=== PATIENT | male | born 1940 | race Caucasian/White ===

== ENCOUNTER 2018-09-15 12:47 | Emergency (ER) | payer OTHER ==
--- NOTE | 2018-09-15 13:15 | RAD REPORT ---
EXAM DESCRIPTION: RAD - Chest Single View - 09/15/2018 1:10 pm CLINICAL HISTORY: SOB Chest pain. COMPARISON: Chest Pa And Lat (2 Views) dated 09/02/2018; Chest Pa And Lat (2 Views) dated 10/31/2015; C HEST PA AND LAT 2 VIEW dated 03/30/2008; CHEST PA AND LAT 2 VIEW dated 09/25/2005 FINDINGS: Portable technique limits examination quality. Mild linear opacities in left lung base may represent atelectasis or early infiltrate/ pneumonia. The lungs are otherwise clear. The heart is mildly enlarged in size. No displaced fractures.
[2018-09-15 13:17] LABS: Absolute Lymphocytes (CBC) 1.1 K/uL (0.7-4.9); Basophils % 0.9 % (0-1.3); Eosinophils % 2.5 % (0-4.4); Hematocrit 41.4 % (39.6-49.0); MPV 8.5 fL (7.6-11.3); Monocytes % 10.1 % (3.3-12.3); RBC Red Blood Cell Count 4.58 M/uL (4.33-5.43)
[2018-09-15 13:18] LABS: Protime INR 2.69
[2018-09-15 13:31] LABS: Albumin 3.3 g/dL (3.4-5.0); Bilirubin Direct 0.6 mg/dL (0-0.2); Bilirubin Total 1.3 mg/dL (0.2-1.0); Magnesium 2.2 mg/dL (1.8-2.4); Potassium 4.3 mmol/L (3.5-5.1); Protein, Total 6.9 g/dL (6.4-8.2); Troponin (Emerg Dept Use Only) 0.02 ng/mL (0.0-0.045)
--- NOTE | 2018-09-15 15:12 | ER ---
Nurse's Notes [facility] Name: Refugio Hsu Age: 78 yrs Sex: Male : 1940 Arrival Date: 09/15/2018 Time: 12:52 Bed 6 Private MD: Diagnosis: Shortness of breath Presentation: 09/15 12:42 Presenting complaint: EMS states: SOB x 2 days, worse with exertion. BP 124/68 HR-54-88 sv 96% RA. Transition of care: patient was not received from another setting of care. Onset of symptoms was September 2018. Risk Assessment: Do you want to hurt yourself or someone else? Patient reports no desire to harm self or others. Initial Sepsis Screen: Does the patient meet any 2 criteria? No. Patient's initial sepsis screen is negative. Does the patient have a suspected source of infection? No. Patient's initial sepsis screen is negative. Care prior to arrival: IV initiated. 20 GA, in the left antecubital area, Glucose check: 143 Oxygen administered. via nasal cannula. 12:42 Method Of Arrival: EMS: [facility] sv 12:42 Acuity: SPENCER 3 sv 12:45 Presenting complaint: Patient states: he had a CXR last week which showed pneumonia, sv his PCP prescribed him an antibiotic. Triage Assessment: 12:45 Respiratory: the patient has mild shortness of breath. sv Historical: - Allergies: 12:55 No Known Allergies; sv - Home Meds: 12:55 Allopurinol Oral [Active]; Bystolic oral oral [Active]; Lisinopril Oral [Active]; sv metformin Oral [Active]; Xarelto oral oral [Active]; - PMHx: 12:55 Diabetes - NIDDM; Hypertension; Atrial Fib; sv - Immunization history:: Adult Immunizations up to date. - Social history:: Smoking status: Patient/guardian denies using tobacco. - Ebola Screening: : No symptoms or risks identified at this time. Screenin:55 Abuse screen: Denies threats or abuse. Denies injuries from another. Nutritional sv screening: No deficits noted. Tuberculosis screening: No symptoms or risk factors identified. Fall Risk None identified. Assessment: 12:45 General: Appears in no apparent distress. comfortable, well groomed, well developed, sv Behavior is calm, cooperative, appropriate for age. Pain: Denies pain. Neuro: Level of Consciousness is awake, alert, obeys commands, Oriented to person, place, time, situation, Moves all extremities. Full function Speech is normal. Cardiovascular: Heart tones S1 S2 present Capillary refill is > 3 seconds in bilateral fingers Patient's skin is warm and dry. Pulses are 3+ in right radial artery and left radial artery Rhythm is atrial fibrillation With PVC's. Respiratory: Airway is patent Respiratory effort is even, unlabored, Respiratory pattern is regular, symmetrical, Breath sounds are clear in left posterior upper lobe, right posterior upper lobe and right posterior middle lobe Breath sounds are diminished in left posterior lower lobe and right posterior lower lobe. Derm: Skin is pink, warm \T\ dry. Skin temperature is warm. Musculoskeletal: Range of motion: intact in all extremities. 13:20 Reassessment: Patient appears in no apparent distress at this time. No changes from sv previously documented assessment. Patient and/or family updated on plan of care and expected duration. Pain level reassessed. Patient is alert, oriented x 3, equal unlabored respirations, skin warm/dry/pink. 15:20 Reassessment: Patient appears in no apparent distress at this time. No changes from sv previously documented assessment. Patient and/or family updated on plan of care and expected duration. Pain level reassessed. Patient is alert, oriented x 3, equal unlabored respirations, skin warm/dry/pink. Vital Signs: 12:45 BP 129 / 85; Pulse 71; Resp 16; Temp 97.9(O); Pulse Ox 96% on 0.5 lpm NC; Pain 0/10; sv 13:47 BP 135 / 91; Pulse 77; Resp 26; Pulse Ox 96% on 0.5 lpm NC; sv 14:34 BP 125 / 83; Pulse 77; Resp 30; sv 15:10 BP 130 / 91; Pulse 82; Resp 22; Pulse Ox 96% on R/A; sv ED Course: 12:42 Maintain EMS IV. Dressing intact. Site clean \T\ dry. Gauge \T\ site: 20G L AC. sv 12:45 shelter monitor on. Pulse ox on. NIBP on. sv 12:52 Patient arrived in ED. sv 12:52 Hope Hogan RN is Primary Nurse. sv 12:53 Triage completed. sv 12:55 Arm band placed on. sv 12:55 Patient has correct armband on for positive identification. Bed in low position. Call sv light in reach. Side rails up X2. 13:00 Initial lab(s) drawn, by me, sent to lab. sv 13:05 EKG done, by telephone technician. reviewed by Gomez Harris MD. at1 13:07 Alex Pratt PA is PHCP. jr8 13:07 Gomez Harris MD is Attending Physician. jr8 13:09 Basic Metabolic Panel Sent. sv 13:09 CBC with Diff Sent. sv 13:10 XRAY Chest (1 view) In Process Unspecified. EDMS 13:47 Nurse Practitioner and/or Physician Mobile Security Specialist to see patient. sv 15:11 Yonny Adames MD is Referral Physician. jr8 15:19 No provider procedures requiring assistance completed. IV discontinued, intact, sv bleeding controlled, No redness/swelling at site. Pressure dressing applied. Administered Medications: No medications were administered Outcome: 15:11 Discharge ordered by . jr8 15:19 Discharged to home ambulatory, with family. sv 15:19 Condition: stable 15:19 Discharge instructions given to patient, family, Instructed on discharge instructions, follow up and referral plans. Demonstrated understanding of instructions, follow-up care. 15:20 Patient left the ED. sv Signatures: Dispatcher [employer] EDMN Hope Hogan, RN RN sv Alex Pratt PA PA jr8 Yvrose Ivan, xray tech EKG Tat1 Corrections: (The following items were deleted from the chart) 13:47 12:45 BP 129 / 85; Pulse 71bpm; Resp 16bpm; Pulse Ox 96% 2 lpm Nasal Cannula; Pain sv 0/10; sv 14:39 14:34 BP 125 / 83; Pulse 77bpm; Resp 30bpm; Pulse Ox 91% RA; sv sv
--- NOTE | 2018-09-15 15:12 | EDPHYS ---
Physician Documentation [facility] Name: Refugio Hsu Age: 78 yrs Sex: Male : 1940 Arrival Date: 09/15/2018 Time: 12:52 Bed 6 Private MD: ED Physician Gomez Harris HPI: 09/15 14:18 This 78 yrs old Male presents to ER via EMS with complaints of Shortness Of jr8 Breath. 14:18 The patient has shortness of breath at rest, with light activity. Onset: The jr8 symptoms/episode began/occurred gradually, 3 week(s) ago, and became worse. Duration: The symptoms are intermittent. The patient's shortness of breath is aggravated by walking. Associated signs and symptoms: The patient has no apparent associated signs or symptoms. Severity of symptoms: At their worst the symptoms were moderate in the emergency department the symptoms have improved. The patient has not experienced similar symptoms in the past. The patient has been recently seen by a physician:. Patient stated that he has had dry cough that had been persistent along with intermittent shortness of breath. Especially with exertion. Patient recently saw PCP and had CXR completed showing early pneumonia vs. atelectasis. Was put on Zithromax. Stated that cough is better but still having shortness of breath. Was worse this AM . Historical: - Allergies: 12:55 No Known Allergies; sv - Home Meds: 12:55 Allopurinol Oral [Active]; Bystolic oral oral [Active]; Lisinopril Oral [Active]; sv metformin Oral [Active]; Xarelto oral oral [Active]; - PMHx: 12:55 Diabetes - NIDDM; Hypertension; Atrial Fib; sv - Immunization history:: Adult Immunizations up to date. - Social history:: Smoking status: Patient/guardian denies using tobacco. - Ebola Screening: : No symptoms or risks identified at this time. ROS: 14:18 Eyes: Negative for injury, pain, redness, and discharge, ENT: Negative for injury, jr8 pain, and discharge, Neck: Negative for injury, pain, and swelling, Cardiovascular: Negative for chest pain, palpitations, and edema, Abdomen/GI: Negative for abdominal pain, nausea, vomiting, diarrhea, and constipation, Back: Negative for injury and pain, MS/Extremity: Negative for injury and deformity, Skin: Negative for injury, rash, and discoloration, Neuro: Negative for headache, weakness, numbness, tingling, and seizure. 14:18 Respiratory: Positive for cough, dyspnea on exertion, shortness of breath. Exam: 14:18 Eyes: Pupils equal round and reactive to light, extra-ocular motions intact. Lids and jr8 lashes normal. Conjunctiva and sclera are non-icteric and not injected. Cornea within normal limits. Periorbital areas with no swelling, redness, or edema. ENT: Nares patent. No nasal discharge, no septal abnormalities noted. Tympanic membranes are normal and external auditory canals are clear. Oropharynx with no redness, swelling, or masses, exudates, or evidence of obstruction, uvula midline. Mucous membranes moist. Neck: Trachea midline, no thyromegaly or masses palpated, and no cervical lymphadenopathy. Supple, full range of motion without nuchal rigidity, or vertebral point tenderness. No Meningismus. Cardiovascular: Regular rate and rhythm with a normal S1 and S2. No gallops, murmurs, or rubs. Normal PMI, no JVD. No pulse deficits. Abdomen/GI: Soft, non-tender, with normal bowel sounds. No distension or tympany. No guarding or rebound. No evidence of tenderness throughout. Back: No spinal tenderness. No costovertebral tenderness. Full range of motion. Skin: Warm, dry with normal turgor. Normal color with no rashes, no lesions, and no evidence of cellulitis. MS/ Extremity: Pulses equal, no cyanosis. Neurovascular intact. Full, normal range of motion. Neuro: Awake and alert, GCS 15, oriented to person, place, time, and situation. Cranial nerves II-XII grossly intact. Motor strength 5/5 in all extremities. Sensory grossly intact. Cerebellar exam normal. Normal gait. 14:18 Respiratory: the patient does not display signs of respiratory distress, Respirations: tachypnea, that is mild, Breath sounds: are clear throughout, no bronchial sounds, no decreased breath sounds, no rales, rhonchi, no stridor, no wheezing. Vital Signs: 12:45 BP 129 / 85; Pulse 71; Resp 16; Temp 97.9(O); Pulse Ox 96% on 0.5 lpm NC; Pain 0/10; sv 13:47 BP 135 / 91; Pulse 77; Resp 26; Pulse Ox 96% on 0.5 lpm NC; sv 14:34 BP 125 / 83; Pulse 77; Resp 30; sv 15:10 BP 130 / 91; Pulse 82; Resp 22; Pulse Ox 96% on R/A; sv MDM: 13:09 Patient medically screened. jr8 14:25 Differential diagnosis: Anxiety Reaction asthma, Bronchitis CHF exacerbation, Chronic jr8 Obstructive Pulmonary Disease Myocardial Infarction pneumonia, Pneumothorax pulmonary edema, Pulmonary Embolism Sepsis Unstable Angina. The patient's pulmonary embolism risk score was calculated as follows: No Risks (0 Pts). Data reviewed: vital signs, nurses notes, lab test result(s), EKG, radiologic studies, plain films. Data interpreted: Pulse oximetry: on room air is 96 %. Interpretation: normal. Counseling: I had a detailed discussion with the patient and/or guardian regarding: the historical points, exam findings, and any diagnostic results supporting the discharge/admit diagnosis, lab results, radiology results, the need for outpatient follow up, a paper twister tender, to return to the emergency department if symptoms worsen or persist or if there are any questions or concerns that arise at home. ED course: Patient feeling better after oxygen. Labs show mild elevation in BNP but without bibasilar crackles or elevated troponin. CXR unchanged from last week. Patient no longer needing oxygen. Was walked around ED. No trouble with breathing and no decline in oxygen saturation. No other acute findings on exam. ECG revealed atrial fib with frequent unifocal PVC's. Patient stated that this is no different then in past. Has been evaluated by Dr. Adames for this and is stable at this time. Tried to call paper twister tender but was unavailable. Recommended close f/u with paper twister tender at this point. Currently does not meet admission requirements. If worse should come back immediately for further review and examination. Patient good with plan . 09/15 12:59 Order name: Basic Metabolic Panel sv 09/15 12:59 Order name: CBC with Diff sv 09/15 12:59 Order name: LFT's; Complete Time: 13:41 sv 09/15 12:59 Order name: Magnesium; Complete Time: 13:41 09/15 12:59 Order name: NT PRO-BNP; Complete Time: 13:41 sv 07/15 12:59 Order name: PT-INR; Complete Time: 13:26 sv 09/15 12:59 Order name: Troponin (emerg Dept Use Only); Complete Time: 13:41 sv 09/15 12:59 Order name: XRAY Chest (1 view); Complete Time: 13:26 sv 09/15 12:59 Order name: EKG; Complete Time: 13:00 sv 09/15 12:59 Order name: Cardiac monitoring; Complete Time: 13:09 sv 09/15 12:59 Order name: EKG - Nurse/Tech; Complete Time: 13:09 sv 09/15 12:59 Order name: IV Saline Lock; Complete Time: 13:09 sv 09/15 13:00 Order name: Basic Metabolic Panel; Complete Time: 13:41 EDMS 09/15 13:00 Order name: CBC with Automated Diff; Complete Time: 13:26 EDMS 09/15 12:59 Order name: Labs collected and sent; Complete Time: 13:08 sv 09/15 12:59 Order name: O2 Per Protocol; Complete Time: 13:08 sv 09/15 12:59 Order name: O2 Sat Monitoring; Complete Time: 13:08 sv Administered Medications: No medications were administered Disposition: 16:42 Co-signature as Attending Physician, Gomez Harris MD I agree with the assessment and kdr plan of care. Disposition: 09/15/18 15:11 Discharged to Home. Impression: Shortness of breath. - Condition is Stable. - Discharge Instructions: Shortness of Breath. - Medication Reconciliation Form, Thank You Letter, Antibiotic Education, Prescription Opioid Use form. - Follow up: Yonny Adames MD; When: 1 - 2 days; Reason: Recheck today's complaints, Continuance of care, Re-evaluation by your physician. - Problem is new. - Symptoms have improved. Signatures: Dispatcher [employer] EDME Hope Hogan RN RN sv Rittger, Kevin, MD MD kdr Roszak, Josh, PA PA jr8 Corrections: (The following items were deleted from the chart) 15:12 14:25 ED course: Patient feeling better after oxygen. Labs show mild elevation in BNP jr8 but without bibasilar crackles or elevated troponin. CXR unchanged from last week. Patient no longer needing oxygen. Was walked around ED. No trouble with breathing and no decline in oxygen saturation. No other acute findings on exam. Tried to call paper twister tender but was unavailable. Recommended close f/u with paper twister tender at this point. Currently does not meet admission requirements. If worse should come back immediately for further review and examination. Patient good with plan . jr8 15:20 15:11 09/15/2018 15:11 Discharged to Home. Impression: Shortness of breath. Condition sv is Stable. Forms are Medication Reconciliation Form, Thank You Letter, Antibiotic Education, Prescription Opioid Use. Follow up: Yonny Adames; When: 1 - 2 days; Reason: Recheck today's complaints, Continuance of care, Re-evaluation by your physician. Problem is new. Symptoms have improved. jr8
--- NOTE | 2018-09-15 15:42 | EKG ---
Test Date: 2018-09-15 Test Time: 12:53:54 Quarry Extraction Worker: JUWAN MEASUREMENT RESULTS: Intervals: Rate: 74 [place]: QRSD: 84 QT: 414 QTc: 459 [place]: P: [place]: QRS: -12 T: -32 INTERPRETIVE STATEMENTS: Atrial fibrillation with premature ventricular or aberrantly conducted complexes Abnormal ECG Compared to ECG 03/14/2016 16:43:57 Ventricular premature complex(es) now present Sinus bradycardia no longer present Myocardial infarct finding no longer present Electronically Signed On 09-15-18 15:41:16 CDT by Wesly Delacruz
== END 2018-09-15 15:20 | disposition home or self-care (01) ==
LOC: ER 12:47
DX: R06.02 Shortness of breath (principal); I10 Essential (primary) hypertension; I48.91 Unspecified atrial fibrillation; E11.9 Type 2 diabetes mellitus without complications; Z79.01 Long term (current) use of anticoagulants
CPT/HCPCS: 36415; 71045; 80048; 80076; 83735; 83880; 84484; 85025; 85610; 93005; 99284

== ENCOUNTER 2021-09-25 12:36 | Emergency (ER) | payer OTHER ==
--- OUTSIDE RECORDS SUMMARY | 2021-09-25 12:39 | XMS REPORT | Continuity of Care Document ---
:1940 Author Organization [facility] t Address [address] [place] [address] Care Team Providers Name Role Phone Hussain_Anjum Attending Clinician Unavailable Hussain_Anjum Admitting Clinician Unavailable Payers Payer Name Policy Type Policy Number Effective Date Expiration Date Jessie fang MEDICARE B-[place]: [id number] 2007 [place] 00:00:00 [employer] LIFE [id number] INS[employer]ANCE [employer] (MEDICARE SUPPLEMENT) Problems Condition Condition Condition Status Onset Resolution Last Treating Co mments Source Name Details Category Date Date Treatment Clinician Date Senile Senile Problem Active [facility] purpura Purpura 4-05 Family 00:00: Practic 00 e Insomnia Insomnia Problem Active [facility] ge 4-05 Family 00:00: Practic 00 e Peripheral Peripheral Problem Active [facility] pulse Pulse 3-31 Family absent Absent 00:00: Practic 00 e 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 Diabetes 3-31 Family mellitus Mellitus 00:00: Practi c 00 e Neuropathy Neuropathy Problem Active [facility] 7-17 Family 00:00: Practic 00 e Atrial Atrial Problem Active [facility] fibrillati Fibrillati 5-23 Fa mando on on 00:00: Practic 00 e Obesity Obesity Problem Active [place] 1-03 Family 00:00: Practic 00 e Essential Essential Problem Active Agustín william hypertensi Hypertensi 1-03 Fa mando on on 00:00: Practic 00 e Hypertensi Hypertensi Problem Active [facility] ve ve 1-03 Family disorder Disorder 00:00: Practi c 00 e Cardiac Cardiac Problem Active [facility] arrhythmia Arrhythmia 1-03 Fa mando 00:00: Practic 00 e 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 1-03 Family rhinitis Rhinitis 00:00: Practi c 00 e Gastroesop Gastroesop Problem Active [facility] hageal hageal 1-03 Family reflux Reflux 00:00: Practic disease Disease 00 e without without esophagiti Esophagiti s s Neuropathy Neuropathy Problem Active [facility] due to Due to 1-03 Family type 2 Type 2 00:00: Practic diabetes Diabetes 00 e mellitus Mellitus General General Problem Active [facility] finding of Finding of 1-03 [facility] observatio Observatio 00:00: Pr actic n of n of 00 e patient Patient Finding of Finding of Problem Active [facility] esophagus Esophagus 1-03 Fami ly 00:00: Practic 00 e Cardiac Cardiac Problem Active [facility] finding Finding 1-03 Family 00:00: Practic 00 e Diabetic Diabetic Problem Active [place] ge peripheral Peripheral 1-03 [facility] neuropathy Neuropathy 00:00: Pr actic 00 e Vitamin Vitamin Problem Active [facility] deficiency Deficiency 1-03 [facility] 00:00: Practic 00 e Hyperlipid Hyperlipid Problem Active [facility] emia emia 1-03 Family 00:00: Practic 00 e Allergies, Adverse Reactions, Alerts Allergy Allergy Status Severity Reaction(s) Onset Inactive Treating Comm ents Source Name Type Date Date Clinician Metformi Allergy Active [facility] n to Family substanc Practic e e Trulicit Allergy Active Diarrhea [place] ge y to Family substanc Practic e e Social History Smoking Status Start Date Stop Date Source Never Smoker [facility] Medications Ordered Filled Start Stop Current Ordering Indication Dosage Frequency Signature Comments Components Source Medication Medication Date Date Medication? Clinician (SIG) Name Name Saman Accu-Chek No Accu-Chek [facility] Fastclix Fastclix Fastclix Fam haja Lancet Drum Lancet Drum Lancet Practic TEST 3 TEST 3 Drum TEST e TIMES A DAY TIMES A DAY 3 TIMES A DIRECTED DIRECTED DAY DIRECTED Accu-Maninder Accu-Chechelly [place] Accu-Chek [facility] FastClix FastClix FastClix Fam haja Lancing Lancing Lancing Practi c Device Device Device e Accu-Maninder Accu-Chek Elin Accu-Chek [facility] Guide test Guide test Guide test Family strips TEST strips TEST strips Practic 3 TIMES A 3 TIMES A TEST 3 e DAY DAY TIMES A DIRECTED DIRECTED DAY DIRECTED alprazolam alprazolam No 1 Q1D alprazolam [facility] 0.5 mg 0.5 mg 0.5 mg Family tablet Take tablet Take tablet Practic 1 tablet 1 tablet Take 1 e every day every day tablet by oral by oral every day route at route at by oral bedtime for bedtime for route at 30 days. 30 days. bedtime for 30 days. atorvastati atorvastati No 1 Q1D atorvastat [facility] n 40 mg n 40 mg in 40 mg Famil y tablet Take tablet Take tablet Practic 1 tablet 1 tablet Take 1 e every day every day tablet by oral by oral every day route. route. by oral route. BD Kandis 2nd BD Kandis 2nd No BD Kandis [place] Gen Pen Gen Pen 2nd Gen Family Needle 32 Needle 32 Pen Needle Practic gauge x gauge x 32 gauge x e " USE 32" USE 32" USE DIRECTED DIRECTED DIRECTED fluticasone fluticasone No fluticason [facility] propionate propionate e Fam haja 50 50 propionate Practic mcg/actuati mcg/actuati 50 e on nasal on nasal mcg/actuat spray,suspe spray,suspe ion nasal nsion NASAL nsion NASAL spray,susp USE 1 SPRAY USE 1 SPRAY ension INTO EACH INTO EACH NASAL USE NOSTRIL 2 NOSTRIL 2 1 SPRAY TIMES A DAY TIMES A DAY INTO EACH NOSTRIL 2 TIMES A DAY furosemide furosemide No furosemide [facility] 40 mg 40 mg 40 mg Family tablet TAKE tablet TAKE tablet Practic 1 TABLET BY 1 TABLET BY TAKE 1 e MOUTH EVERY MOUTH EVERY TABLET BY DAY DAY MOUTH EVERY DAY gabapentin gabapentin No 2capsul Q1D gabapentin [facility] 400 mg 400 mg e(s) 400 mg Family capsule capsule capsule Practi c Take 2 Take 2 Take 2 e capsules capsules capsules every day every day every day by oral by oral by oral route at route at route at bedtime. bedtime. bedtime. nebivolol 5 nebivolol 5 No nebivolol [place] mg tablet mg tablet 5 mg Famil y TAKE 1 TAKE 1 tablet Practic TABLET BY TABLET BY TAKE 1 e MOUTH EVERY MOUTH EVERY TABLET BY DAY DAY MOUTH EVERY DAY omeprazole omeprazole No omeprazole [facility] 20 mg 20 mg 20 mg Family capsule,del capsule,del capsule,de Practic ayed ayed layed e release release release TAKE 1 TAKE 1 TAKE 1 CAPSULE BY CAPSULE BY CAPSULE BY MOUTH EVERY MOUTH EVERY MOUTH DAY DAY EVERY DAY Tresiba Tresiba No Tresiba [facility] FlexTouch FlexTouch FlexTouch Family U-100 U-100 U-100 Practic insulin 100 insulin 100 insulin e unit/mL (3 unit/mL (3 100 mL) mL) unit/mL (3 subcutaneou subcutaneou mL) s pen USE s pen USE subcutaneo 50 UNITS 50 UNITS us pen USE SUBCUTANEOU SUBCUTANEOU 50 UNITS SLY AT SLY AT SUBCUTANEO BREAKFAST BREAKFAST USLY AT AND AND BREAKFAST INCREASE INCREASE AND DIRECTED DIRECTED INCREASE (MAX OF 70 (MAX OF 70 UNITS UNITS DIRECTED DAILY) DAILY) (MAX OF 70 UNITS DAILY) Vitamin D3 Vitamin D3 No Vitamin D3 [facility] Practic e Xarelto 20 Xarelto 20 No Xarelto 20 [facility] mg tablet mg tablet mg tablet Family TAKE 1 TAKE 1 TAKE 1 Practic TABLET BY TABLET BY TABLET BY e MOUTH EVERY MOUTH EVERY MOUTH DAY EVENING DAY EVENING EVERY DAY MEAL MEAL EVENING MEAL Immunizations Ordered Immunization Filled Immunization Date Status Commen Source Name Name COVID-19, mRNA, COVID-19, mRNA, 2020-05-02 Completed [facility] Family LNP-S, PF, 100 LNP-S, PF, 100 00:00:00 Practi ce mcg/0.5 mL dose mcg/0.5 mL dose (Moderna) (Moderna) influenza, influenza, 2019-12-23 [facility] injectable, injectable, 00:00:00 Practice quadrivalent quadrivalent Vital Signs Vital Name Observation Time Observation Value Comments Source BP Diastolic 2021-06-06 00:00:00 83 mm[Hg] [facility] Practice Height 2021-06-06 00:00:00 71 [in_i] [facility] Practice BMI (Body Mass 2021-06-06 00:00:00 31.1 kg/m2 [facility] Family Index) Practice BP Systolic 2021-06-06 00:00:00 124 mm[Hg] [facility] Practice Body Weight 2021-06-06 00:00:00 223 [lb_av] [facility] BP Diastolic 2020-12-02 00:00:00 82 mm[Hg] [facility] Practice Height 2020-12-02 00:00:00 71 [in_i] [facility] BMI (Body Mass 2020-12-02 00:00:00 31.2 kg/m2 [facility] Index) Practice BP Systolic 2020-12-02 00:00:00 119 mm[Hg] [facility] Body Weight 2020-12-02 00:00:00 224 [lb_av] [facility] BP Diastolic 2020-06-01 00:00:00 86 mm[Hg] [facility] Height 2020-06-01 00:00:00 71 [in_i] [facility] BMI (Body Mass 2020-06-01 00:00:00 30.8 kg/m2 [facility] Index) Practice BP Systolic 2020-06-01 00:00:00 123 mm[Hg] [facility] Body Weight 2020-06-01 00:00:00 221 [lb_av] [facility] Procedures Procedure Date / Time Performing Clinician Source Performed Cardiac Catheterization 2016-07-02 00:00:00 [facility] Carpal Tunnel Surgery 2009-03-04 00:00:00 [facility] Complete Repair of Rotator 2007-03-04 00:00:00 [facility] Cuff Practice Colonoscopy [facility] Appendectomy [facility] Plan of Care Planned Activity Planned Date Details Comments Source Diagnostic Test 2021-06-06 glucose, fingerstick, [facility] Pending 00:00:00 blood [code = Practice glucose, fingerstick, blood] Diagnostic Test 2021-06-06 hemoglobin A1C, [facility] Pending 00:00:00 fingerstick [code = Practice hemoglobin A1C, fingerstick] Diagnostic Test 2021-06-06 CBC w/ auto diff [facility] Pending 00:00:00 [code = CBC w/ auto Practice diff] Diagnostic Test 2021-06-06 CMP, serum or plasma [facility] Pending 00:00:00 [code = CMP, serum or Practi ce plasma] Diagnostic Test 2021-06-06 TSH, serum or plasma [facility] Pending 00:00:00 [code = TSH, serum or Practi ce plasma] Diagnostic Test 2021-06-06 T4, free, serum [code Agustín william [facility] Pending 00:00:00 = T4, free, serum] Practice Diagnostic Test 2021-06-06 lipid panel, serum [facility] Pending 00:00:00 [code = lipid panel, Practic e serum] Diagnostic Test 2021-06-06 microalbumin/creatini Agustín william Family Pending 00:00:00 ne, mass ratio, urine Practi magali [code = microalbumin/creatini ne, mass ratio, urine] Future Appointment 2021-12-06 Pantera Nixon, [id number] [facility] 00:00:00 [facility]; Practice [address], [place] [address] Encounters Start End Encounter Admission Attending Care Care Encounter Source Date/Time Date/Time Type Type Clinicians Facility Department ID 2021-06-14 2021-06-14 Outpatient Daniel_T VFP VFP [id number] [address] [place] [address] 11:45:00 11:45:00 [id number] Family Practic e 2021-06-06 2021-06-06 Outpatient Daniel_T VFP VFP [id number] [address] [place] [address] 01:02:00 01:02:00 [id number] Family Practic e 2021-06-06 2021-06-06 [facility] [place] - [id number] [place] [facility] 00:00:00 00:00:00 [facility] NixonRachel - Giuseppe marie MD: [id number] VM_HOU_Shatequila e Shadow [facility], [address], [place] [address] , Ph. 2021-02-24 2021-02-24 Outpatient Daniel_T VFP VFP [id number] [address] [place] [address] 03:43:00 03:43:00 [id number] Family Practic e 2021-02-24 2021-02-24 Outpatient Daniel_T VFP VFP [id number] [address] [place] [address] 03:43:00 03:43:00 [id number] Family Practic e 2021-02-06 2021-02-06 Outpatient Daniel_T VFP VFP [id number] [address] [place] [address] 05:36:00 05:36:00 [id number] Family Practic e 2020-12-02 2020-12-02 Outpatient Daniel_T VFP VFP [id number] [address] [place] [address] 02:56:00 02:56:00 [id number] Family Practic e 2020-12-02 2020-12-02 [facility] [place] - [id number] [place] [facility] 00:00:00 00:00:00 [facility] - Pracryan marie MD: [id number] RADHA_Doug lim Shadow [facility], [address], [place] [address] , Ph. 2020-11-28 2020-11-28 Outpatient Daniel_T VFP VFP [id number] [address] [place] [address] 06:50:00 06:50:00 [id number] Family Practic e 2020-11-28 2020-11-28 Outpatient Daniel_T VFP VFP [id number] [address] [place] [address] 06:50:00 06:50:00 [id number] Family Practic e 2020-10-11 2020-10-11 Outpatient Daniel_T VFP VFP [id number] [address] [place] [address] 04:43:00 04:43:00 [id number] Family Practic e 2020-09-19 2020-09-19 Outpatient Daniel_T VFP VFP [id number] [address] [place] [address] 12:25:00 12:25:00 [id number] Family Practic e 2020-06-04 2020-06-04 Outpatient Daniel_T VFP VFP [id number] [address] [place] [address] 05:50:00 05:50:00 [id number] Family Practic e 2020-06-01 2020-06-01 Outpatient Daniel_T VFP VFP [id number] [address] [place] [address] 05:34:00 05:34:00 [id number] Family Practic e 2020-06-01 2020-06-01 [facility] [place] - [id number] [facility] 00:00:00 00:00:00 [facility] - Pracryan marie MD: [id number] Darrin e Shadow [facility], [address] [address] , Ph. 2020-05-27 2020-05-27 Outpatient Daniel_T VFP VFP [id number] [address] [place] [address] 06:40:00 06:40:00 [id number] Family Practic e Results Test Description Test Time Test Comments Results Result Comments Source Hemoglobin A1c measurement device panel 2021-06-06 12:27:32 Test Item Value Reference Range Interpretation Comme nts Hemoglobin A1C Fingerstick: (test code = Hemoglobin A1C Fingerstick :) 6 [facility] in Capillary [id number] 12:24:20 Test Item Value Reference Range Interpretation Comments Blood Glucose: mg/dl (test code = Blood 55 Glucose: mg/dl) [facility]
--- NOTE | 2021-09-25 15:22 | RAD REPORT ---
EXAM DESCRIPTION: RAD - Chest Pa And Lat (2 Views) - 09/25/2021 3:12 pm CLINICAL HISTORY: COUGH COMPARISON: Portable chest 09/15/2018, lateral chest 09/02/2018 TECHNIQUE: Frontal and lateral views of the chest were obtained. FINDINGS: The lungs are clear of an acute process. Lung volumes are relatively low. Interstitial mar kings match comparison. Hilar regions are stable. Heart size is normal and central vasculature is w ithin normal limits. No pleural effusion or pneumothorax seen. No acute bony finding noted. No aor tic abnormality. No significant change from comparison study. IMPRESSION: No acute cardiopulmonary process.
--- NOTE | 2021-09-25 15:45 | EDPHYS ---
Physician Documentation [facility] Name: Refugio Hsu Age: 81 yrs Sex: Male : 1940 Arrival Date: 09/25/2021 Time: 12:38 Bed Waiting Private MD: Megan Arguello F ED Physician Ricco Ferrer HPI: 09/25 15:50 This 81 yrs old Male presents to ER via Ambulatory with complaints of Flu Symptoms. kb 15:50 The patient or guardian reports cough, that is intermittent, described as mild. Onset: kb The symptoms/episode began/occurred 1 week(s) ago. Severity of symptoms: At their worst the symptoms were moderate, in the emergency department the symptoms are unchanged. Modifying factors: The symptoms are alleviated by nothing, the symptoms are aggravated by nothing. Associated signs and symptoms: The patient has no apparent associated signs or symptoms. The patient has not experienced similar symptoms in the past. The patient has not recently seen a physician. Historical: - Allergies: 12:56 No Known Allergies; ap3 - Home Meds: 12:56 nebivolol 5 mg oral tab [Active]; Xarelto 20 mg oral tab [Active]; furosemide 40 mg ap3 Oral tab [Active]; gabapentin 400 mg oral cap [Active]; Tresiba FlexTouch U-100 subcutaneous [Active]; omeprazole 20 mg Oral TbEC [Active]; alprazolam 0.5 mg Oral Tb24 [Active]; - PMHx: 12:56 Atrial Fib; Diabetes - NIDDM; Hypertension; ap3 - Immunization history:: Client reports receiving the 2nd dose of the Covid vaccine. - Social history:: Smoking status: Patient denies any tobacco usage or history of. ROS: 15:49 Cardiovascular: Negative for chest pain, palpitations, and edema. kb 15:49 Constitutional: Positive for malaise, Negative for chills, fever. 15:49 Respiratory: Positive for cough, Negative for dyspnea on exertion, hemoptysis, orthopnea, pleurisy, shortness of breath, sputum production, wheezing. 15:49 Neuro: Positive for headache. 15:49 All other systems are negative. Exam: 15:49 Constitutional: This is a well developed, well nourished patient who is awake, alert, kb and in no acute distress. Head/Face: Normocephalic, atraumatic. ENT: Moist Mucous membranes Cardiovascular: Regular rate and rhythm with a normal S1 and S2. No gallops, murmurs, or rubs. No pulse deficits. Respiratory: Respirations even and unlabored. No increased work of breathing. Talking in full sentences Abdomen/GI: Soft, non-tender. No distention Skin: Warm, dry with normal turgor. Normal color. MS/ Extremity: Pulses equal, no cyanosis. Neurovascular intact. Full, normal range of motion. Neuro: Awake and alert, GCS 15, oriented to person, place, time, and situation. Moves all extremities. Normal gait. Psych: Awake, alert, with orientation to person, place and time. Behavior, mood, and affect are within normal limits. Vital Signs: 12:54 BP 114 / 80; Pulse 80; Resp 18; Temp 98.1; Pulse Ox 98% ; Weight 97.98 kg; Height 5 ft. ap3 11 in. (180.34 cm); 12:54 Body Mass Index 30.13 (97.98 kg, 180.34 cm) ap3 MDM: 15:44 Patient medically screened. kb 15:48 Data reviewed: vital signs, nurses notes. Data interpreted: Pulse oximetry: on room air kb is 98 %. Interpretation: normal. Counseling: I had a detailed discussion with the patient and/or guardian regarding: the historical points, exam findings, and any diagnostic results supporting the discharge/admit diagnosis, lab results, radiology results, the need for outpatient follow up, a family practitioner, to return to the emergency department if symptoms worsen or persist or if there are any questions or concerns that arise at home. 09/25 13:00 Order name: COVID-19 SARS RT PCR (Document "Date of Onset" if Symptomatic); Complete ap3 Time: 14:37 09/25 13:00 Order name: Flu; Complete Time: 14:37 ap3 09/25 14:04 Order name: XRAY Chest Pa And Lat (2 Views); Complete Time: 15:26 [id number] Administered Medications: No medications were administered Disposition Summary: 09/25/21 15:44 Discharge Ordered Location: Home kb Condition: Stable kb Diagnosis - Coronavirus infection, unspecified kb Followup: kb - With: Emergency Department - When: As needed - Reason: Worsening of condition Followup: kb - With: Private Physician - When: 2 - 3 days - Reason: Recheck today's complaints, Continuance of care, Re-evaluation by your physician Discharge Instructions: - Discharge Summary Sheet kb - Viral Respiratory Infection, [id number] kb - COVID-19 kb Forms: - Medication Reconciliation Form kb - Thank You Letter kb - Antibiotic Education kb - Prescription Opioid Use kb Prescriptions: - Tessalon Perles 100 mg Oral Capsule - take 1 capsule by ORAL route every 8 hours As needed; 15 capsule; Refills: 0, kb Product Selection Permitted Signatures: Dispatcher [employer] EDMS Zari Salinas, EXTRUDING PRESS ADJUSTER-C Yvrose Pinto RN RN ap3
--- NOTE | 2021-09-25 15:45 | ER ---
Nurse's Notes [facility] Name: Refugio Hsu Age: 81 yrs Sex: Male : 1940 Arrival Date: 09/25/2021 Time: 12:38 Bed Waiting Private MD: Megan Arguello F Diagnosis: Coronavirus infection, unspecified Presentation: 09/25 12:54 Chief complaint: Patient states: he has been having a headache, body ache, and ap3 productive cough for approx one week. he states that earlier in the week he took a at home COVID test, which was negative and his daughter got him a Z-Pack. He reports feeling better after taking the Z-pack, but is starting to feel bad again. Coronavirus screen: Client presents with at least one sign or symptom that may indicate coronavirus-19. Ebola Screen: No symptoms or risks identified at this time. Initial Sepsis Screen: Does the patient meet any 2 criteria? No. Patient's initial sepsis screen is negative. Does the patient have a suspected source of infection? Yes: Productive cough/pneumonia. Risk Assessment: Do you want to hurt yourself or someone else? Patient reports no desire to harm self or others. Onset of symptoms was September 18, 2021. 12:54 Method Of Arrival: Ambulatory ap3 12:54 Acuity: SPENCER 4 ap3 Triage Assessment: 12:59 General: Appears in no apparent distress. Behavior is calm, cooperative, Reports ap3 feeling ill for fatigue for. Pain: Denies pain. Neuro: Level of Consciousness is awake, alert, obeys commands, Oriented to person, place, time, situation. Cardiovascular: Patient's skin is warm and dry. Respiratory: Reports cough that is productive, Airway is patent Respiratory effort is even, unlabored, Respiratory pattern is regular, symmetrical. Historical: - Allergies: 12:56 No Known Allergies; ap3 - Home Meds: 12:56 nebivolol 5 mg oral tab [Active]; Xarelto 20 mg oral tab [Active]; furosemide 40 mg ap3 Oral tab [Active]; gabapentin 400 mg oral cap [Active]; Tresiba FlexTouch U-100 subcutaneous [Active]; omeprazole 20 mg Oral TbEC [Active]; alprazolam 0.5 mg Oral Tb24 [Active]; - PMHx: 12:56 Atrial Fib; Diabetes - NIDDM; Hypertension; ap3 - Immunization history:: Client reports receiving the 2nd dose of the Covid vaccine. - Social history:: Smoking status: Patient denies any tobacco usage or history of. Screenin:59 Abuse screen: Denies threats or abuse. Nutritional screening: No deficits noted. ap3 Tuberculosis screening: No symptoms or risk factors identified. Vital Signs: 12:54 BP 114 / 80; Pulse 80; Resp 18; Temp 98.1; Pulse Ox 98% ; Weight 97.98 kg; Height 5 ft. ap3 11 in. (180.34 cm); 12:54 Body Mass Index 30.13 (97.98 kg, 180.34 cm) ap3 ED Course: 12:38 Patient arrived in ED. mr 12:38 Megan Arguello MD is Private Physician. mr 12:56 Triage completed. ap3 13:00 Arm band placed on right wrist. ap3 14:37 Zari Salinas FNP-C is PHCP. kb 14:37 Ricco Ferrer MD is Attending Physician. kb 15:13 XRAY Chest Pa And Lat (2 Views) In Process Unspecified. EDMS Administered Medications: No medications were administered Outcome: 15:44 Discharge ordered by . kb 15:50 Patient left the ED. kb Signatures: Dispatcher [employer] EDMS Zari Salinas FNP-C FNP-Ckb Rivera, Mary mr PhilharmanYvrose, RN RN ap3
[2021-09-25 16:22] VITALS: BP 114/80; TEMP 98.1; O2SAT 98
== END 2021-09-25 15:50 | disposition home or self-care (01) ==
LOC: ER 12:36
DX: U07.1 COVID-19 (principal); E11.9 Type 2 diabetes mellitus without complications; I10 Essential (primary) hypertension; I48.91 Unspecified atrial fibrillation; Z79.01 Long term (current) use of anticoagulants
CPT/HCPCS: 87804 ×2; 71046; U0003; 99282

== ENCOUNTER 2022-04-06 11:44 | Emergency (ER) | payer OTHER ==
--- NOTE | 2022-04-06 12:36 | RAD REPORT ---
EXAM DESCRIPTION: RAD - Foot Right 3 View - 04/06/2022 12:26 pm CLINICAL HISTORY: PAIN COMPARISON: BREAST/AXILLA, LIMITED dated 03/16/2022No comparisons FINDINGS: Large posterior and plantar calcaneal spurs. No fracture seen. No radiographic finding to suggest osteomyelitis. However, if osteomyelitis remains a clinical concern, MRI would be recommended which is more sensitive.
--- OUTSIDE RECORDS SUMMARY | 2022-04-06 12:36 | XMS REPORT | Continuity of Care Document ---
:1940 Author Organization [facility] t Address [address] 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 (MEDICARE SUPPLEMENT) Problems Condition Condition Condition Status Onset Resolution Last Treating Co mments Source Name Details Category Date Date Treatment Clinician Date Senile Senile Problem Active [facility] purpura Purpura 4-05 Family 00:00: Practic 00 e Insomnia Insomnia Problem Active [place] ge 4-05 Family 00:00: Practic 00 e Peripheral Peripheral Problem Active [place] pulse Pulse 3-31 Family absent Absent 00:00: Practic 00 e Neuropathy Neuropathy Problem Active [place] 7-17 Family 00:00: Practic 00 e Atrial Atrial Problem Active [facility] fibrillati Fibrillati 5-23 Fa mando on on 00:00: Practic 00 e Obesity Obesity Problem Active [place] 1-03 Family 00:00: Practic 00 e Essential Essential Problem Active Agustín william hypertensi Hypertensi 1-03 Fa mando on on 00:00: Practic 00 e Cardiac Cardiac Problem Active [facility] arrhythmia Arrhythmia 1-03 Fa mando 00:00: Practic [...] e mellitus Mellitus General General Problem Active [facility] finding of Finding of -03 Fa [facility] observatio Observatio 00:00: Pr actic n of n of 00 e patient Patient Finding of Finding of Problem Active [place] esophagus Esophagus -03 Fami ly 00:00: Practic 00 e Cardiac Cardiac Problem Active [facility] finding Finding 03-06 Family 00:00: Practic 00 e Diabetic Diabetic Problem Active [place] peripheral Peripheral - [facility] neuropathy Neuropathy 00:00: Pr actic 00 e Vitamin Vitamin Problem Active [facility] deficiency Deficiency 1-03 [facility] 00:00: Practic 00 e Hyperlipid Hyperlipid Problem Active [place] emia emia 1- Family 00:00: Practic 00 e Foot pain Foot pain Problem Active 2022-02-09 Memoria (finding) (finding) 00:10:51 l Active [place] Problem 02/09/2022 [facility] Hypertensi Hypertens Problem Active 2022-02-09 Memoria ve braydon 00:10:51 l disorder, disorder, Herm wander systemic systemic arterial arterial (disorder) (disorder) Active Problem 02/09/2022 [facility] Mild Mild Problem Active 2022-02-09 Memor ia anxiety anxiety 00:10:51 l (finding) (finding) Herm wander Active Problem 02/09/2022 [facility] Neuropathi Neuropath Problem Active 2022-02-09 Memoria c pain ic pain 00:10:51 l (finding) (finding) Herm wander Active Problem 02/09/2022 [facility] Paraparesi Parapares Problem Active 2022-02-09 Memoria s is 00:10:51 l (disorder) (disorder) He rmann Active Problem 02/09/2022 [facility] Peripheral Periphera Problem Active 2022-02-09 Memoria nerve l nerve 00:10:51 l disease disease [place] (disorder) (disorder) Active Problem 02/09/2022 [facility] Diabetes Diabetes Problem Active 2022-02-09 Memoria mellitus mellitus 00:10:51 l type 2 type 2 [place] (disorder) (disorder) Active Problem 02/09/2022 [facility] Allergies, Adverse Reactions, Alerts Allergy Allergy Status Severity Reaction(s) Onset Inactive Treating Comm ents Source Name Type Date Date Clinician Anitai Allergy Active [place] n to Family substanc Practic e e Trulicit Allergy Active Diarrhea [place] y to Family substanc Practic e e Social History Social Habit Start Date Stop Date Quantity Comments Source Social History 2022-02-02 2022-02-02 [facility] 21:09:02 21:09:02 Social History 2021-10-13 2021-10-13 [facility] 19:14:21 19:14:21 Smoking Status Start Date Stop Date Source Tobacco smoking status [facility] Medications Ordered Filled Start Stop Current Ordering Indication Dosage Frequency Signature Comments Components Source Medication Medication Date Date Medication? Clinician (SIG) Name Name Klaudia 30 No 30 mg = 1 M emoria mg oral 9-06 cap, PO, l delayed 14:53: Daily, # Horace n release 00 90 cap, 1 capsule Refill(s), Pharmacy: [id number], 172.72, cm, 10/13/21 14:08:00 CDT, Height, 101.42, kg, 10/13/21 14:08:00 CDT, Weight Iqrata 30 Yes 30 mg = 1 M emoria mg oral 8-12 cap, PO, l delayed 20:05: Daily, # Horace n release 00 30 cap, 3 capsule Refill(s), Pharmacy: [id number], 172.72, cm, 10/13/21 14:08:00 CDT, Height, 101.42, kg, 10/13/21 14:08:00 CDT, Weight gabapentin Yes TAKE 2 Memor ia 400 mg oral 8-12 CAPSULES l capsule 19:31: BY MOUTH Horace n 00 EVERY DAY AT BEDTIME. furosemide Yes TAKE 1 Memor ia 40 mg oral 8-12 TABLET BY l tablet 19:31: MOUTH [place] 00 EVERY DAY Nebivolol 5 Yes TAKE 1 Danny rashmi mg oral 8-12 TABLET BY l tablet 19:31: MOUTH [place] 00 EVERY DAY Xarelto 20 Yes TAKE 1 Memor ia mg oral 8-12 TABLET BY l tablet 19:31: MOUTH [place] 00 EVERY DAY EVENING MEAL Tresiba Yes INJECT 50 Memor ia FlexTouch 8-12 UNITS l 100 19:31: SUBCUTANEO [place] units/mL 00 USLY AT subcutaneou BREAKFAST s solution AND INCREASE DIRECTED (MAX 70 UNITS DAILY) BD YELENA 2 Yes USE Memori a GEN PEN NDL 8-12 DIRECTED l [id number] 19:31: [place] 00 Vitamin D3 Yes 125 Memoria 5000 intl 8-12 microgram l units oral 19:30: = 1 tab, Her whitt tablet 00 PO, Daily, 0 Refill(s) Centrum Yes 1 tab, PO, Danny rashmi Silver 8-12 Daily, 0 l Men's 19:30: Refill(s) [place] 00 Vitamin Yes 1,000 Memoria B-12 1000 8-12 microgram l mcg oral 19:29: = 1 tab, [place] nn tablet 00 PO, Daily, 0 Refill(s) Vitamin B Yes 1 cap, PO, Me moria Complex 8-12 Daily, 0 l oral 19:29: Refill(s) [place] capsule 00 famotidine Yes 20 mg = 1 Me moria 20 mg oral 8-12 tab, PO, l tablet 19:28: Daily, 0 [place] 00 Refill(s) ALPRAZOLam Yes 0.5 mg = 1 M emoria 0.5 mg oral 8-12 tab, PO, l tablet, 19:27: QAM, 0 [place] extended 00 Refill(s) release Accu-Chek Accu-Chek No Accu-Chek [facility] Fastclix Fastclix Fastclix Fam haja Lancet Drum Lancet Drum Lancet Practic TEST 3 TEST 3 Drum TEST e TIMES A DAY TIMES A DAY 3 TIMES A DIRECTED DIRECTED DAY DIRECTED Accu-Chek Accu-Chek No Accu-Chek [facility] FastClix FastClix FastClix Fam haja Lancing Lancing Lancing Practi c Device Device Device e Accu-Chek Accu-Chek No Accu-Chek [place] Guide test Guide test Guide test Family strips TEST strips TEST strips Practic 3 TIMES A 3 TIMES A TEST 3 e DAY DAY TIMES A DIRECTED DIRECTED DAY DIRECTED alprazolam alprazolam No 1 Q1D alprazolam [facility] 0.5 mg 0.5 mg 0.5 mg Family tablet Take tablet Take tablet Practic 1 tablet 1 tablet Take 1 e every day every day tablet by oral by oral every day route at route at by oral bedtime for bedtime for route at 30 days. 30 days. bedtime for 30 days. atorvastati atorvastati No 1 Q1D atorvastat [facility] n 40 mg n 40 mg in 40 mg Famil y tablet Take tablet Take tablet Practic 1 tablet 1 tablet Take 1 e every day every day tablet by oral by oral every day route. route. by oral route. BD Yelena 2nd BD Yelena 2nd No BD Yelena [place] Gen Pen Gen Pen 2nd Gen Family Needle 32 Needle 32 Pen Needle Practic gauge x gauge x 32 gauge x e " USE " USE " USE DIRECTED DIRECTED DIRECTED fluticasone fluticasone No fluticason [facility] propionate propionate e Fam haja 50 50 propionate Practic mcg/actuati mcg/actuati 50 e on nasal on nasal mcg/actuat spray,suspe spray,suspe ion nasal nsion NASAL nsion NASAL spray,susp USE 1 SPRAY USE 1 SPRAY ension INTO EACH INTO EACH NASAL USE NOSTRIL 2 NOSTRIL 2 1 SPRAY TIMES A DAY TIMES A DAY INTO EACH NOSTRIL 2 TIMES A DAY furosemide furosemide No furosemide [facility] 40 mg 40 mg 40 mg Family tablet TAKE tablet TAKE tablet Practic 1 TABLET BY 1 TABLET BY TAKE 1 e MOUTH EVERY MOUTH EVERY TABLET BY DAY DAY MOUTH EVERY DAY gabapentin gabapentin No 2capsul Q1D gabapentin [facility] 400 mg 400 mg e(s) 400 mg [...] MOUTH EVERY DAY omeprazole omeprazole No omeprazole [facility] 20 mg 20 mg 20 mg Family [...] Vitamin D3 Vitamin D3 No Vitamin D3 [facility] Family Practic e Xarelto 20 Xarelto 20 No Xarelto 20 [facility] mg tablet mg tablet mg tablet Family TAKE 1 TAKE 1 TAKE 1 Practic TABLET BY TABLET BY TABLET BY e MOUTH EVERY MOUTH EVERY MOUTH DAY EVENING DAY EVENING EVERY DAY MEAL MEAL EVENING MEAL Immunizations Ordered Immunization Filled Immunization Date Status Commen ts Source Name Name COVID-19, mRNA, COVID-19, mRNA, 2020-05-02 Completed [facility] Family LNP-S, PF, 100 LNP-S, PF, 100 00:00:00 Practi ce mcg/0.5 mL dose mcg/0.5 mL dose (Moderna) (Moderna) influenza, influenza, 2019-12-[address] [facility] injectable, injectable, 00:00:00 Practice quadrivalent quadrivalent Vital Signs Vital Name Observation Time Observation Value Comments Source BP Diastolic 2021-06-06 00:00:00 83 mm[Hg] [facility] Practice Height 2021-06-06 00:00:00 71 [in_i] [facility] BMI (Body Mass 2021-06-06 00:00:00 31.1 kg/m2 [facility] Index) Practice BP Systolic 2021-06-06 00:00:00 124 mm[Hg] [facility] Body Weight 2021-06-06 00:00:00 223 [lb_av] [facility] BP Diastolic 2020-12-02 00:00:00 82 mm[Hg] [facility] Height 2020-12-02 00:00:00 71 [in_i] [facility] Practice BMI (Body Mass 2020-12-02 00:00:00 31.2 kg/m2 [facility] Family Index) Practice BP Systolic 2020-12-02 00:00:00 119 mm[Hg] [facility] Body Weight 2020-12-02 00:00:00 224 [lb_av] [facility] BP Diastolic 2020-06-01 00:00:00 86 mm[Hg] [facility] Height 2020-06-01 00:00:00 71 [in_i] [facility] Practice BMI (Body Mass 2020-06-01 00:00:00 30.8 kg/m2 [facility] Family Index) Practice BP Systolic 2020-06-01 00:00:00 123 mm[Hg] [facility] Body Weight 2020-06-01 00:00:00 221 [lb_av] [facility] Systolic (mm Hg) 2021-11-29 14:32:00 Danny rial [place] Diastolic (mm Hg) 2021-11-29 14:32:00 Mem orial [place] Heart Rate 2021-11-29 14:32:00 [facility] [place] Respitory Rate 2021-11-29 14:32:00 Memori al [place] Height 2021-11-29 14:32:00 175.26 cm [facility] [place] Weight 2021-11-29 14:32:00 [facility] [place] BMI Calculated 2021-11-29 14:32:00 Memori al [place] Systolic (mm Hg) 2021-10-13 19:08:00 Danny rial [place] Diastolic (mm Hg) 2021-10-13 19:08:00 Mem orial [place] Heart Rate 2021-10-13 19:08:00 [facility] [place] Respitory Rate 2021-10-13 19:08:00 Memori al [place] Height 2021-10-13 19:08:00 172.72 cm [facility] [place] Weight 2021-10-13 19:08:00 [facility] [place] BMI Calculated 2021-10-13 19:08:00 Memori al [place] Procedures Procedure Date / Time Performing Clinician Source Performed Cardiac Catheterization 2016-07-02 00:00:00 [facility] Carpal Tunnel Surgery 2009-03-04 00:00:00 [facility] Complete Repair of Rotator 2007-03-04 00:00:00 [facility] [facility] Colonoscopy [facility] Appendectomy [facility] Appendectomy<sup>1</sup> Arsen Tomlin Plan of Care Planned Activity Planned Date Details Comments Source Diagnostic Test 2021-06-06 TSH, serum or plasma [facility] Pending 00:00:00 [code = TSH, serum or Practi ce plasma] Diagnostic Test 2021-06-06 T4, free, serum [code Agustín william [facility] Pending 00:00:00 = T4, free, serum] Practice Diagnostic Test 2021-06-06 lipid panel, serum [facility] Pending 00:00:00 [code = lipid panel, Practic e serum] Diagnostic Test 2021-06-06 microalbumin/creatini [facility] Pending 00:00:00 ne, mass ratio, urine Practi ce [code = microalbumin/creatini ne, mass ratio, urine] Diagnostic Test 2021-06-06 glucose, fingerstick, [facility] Pending 00:00:00 blood [code = Practice glucose, fingerstick, blood] Diagnostic Test 2021-06-06 hemoglobin A1C, [facility] amil Pending 00:00:00 fingerstick [code = Practice hemoglobin A1C, fingerstick] Diagnostic Test 2021-06-06 CBC w/ auto diff [facility] Pending 00:00:00 [code = CBC w/ auto Practice diff] Diagnostic Test 2021-06-06 CMP, serum or plasma [facility] Pending 00:00:00 [code = CMP, serum or Practi ce plasma] Encounters Start End Encounter Admission Attending Care Care Encounter Source Date/Time Date/Time Type Type Clinicians Facility Department ID 2022-02-06 2022-02-06 Ambulatory [facility] MNA [id number] Arsen 16:15:00 16:15:00 Pre-Reg Neurology 02 tasia Tomlin 2022-02-06 2022-02-06 Outpatient [facility]IE MARY [id number] Arsen 10:15:00 10:15:00 02 tasia Tomlin 2022-02-06 2022-02-06 Outpatient SUNDAY Fernando MISCHKRYSTIN [id number] 10:15:00 10:15:00 Kikr Finley 2021-11-29 2021-11-30 Outpatient nullFlavo MNA [id number] Memoria 13:15:00 04:59:59 r Neurology 01 l Prairiemoisés Bandaann 2021-11-29 2021-11-29 [id number] 08:15:00 23:59:59 Kirk 01 Tushar 2021-11-29 2021-11-29 Outpatient MHIE MARGAUX [id number] Memoria 08:15:00 08:15:00 01 tasia Nabor 2021-11-03 2021-11-03 Outpatient Daniel_T VFP VFP [id number] [address] [place] [address] 00:00:00 00:00:00 [id number] Family Practic e 2021-10-24 2021-10-24 Outpatient Daniel_T VFP VFP [id number] [address] [place] [address] 00:00:00 00:00:00 [id number] Family Practic e 2021-10-13 2021-10-14 Outpatient nullFlavo MNA [id number] Memoria 19:00:00 04:59:59 r Neurology 00 l Trisha Tomlin 2021-10-13 2021-10-13 [facility] SUNDAY [id number] 14:00:00 23:59:59 Kirk 00 Tushar 2021-10-13 2021-10-13 Outpatient MHIE MARY [id number] Memoria 14:00:00 14:00:00 00 tasia Nabor 2021-06-14 2021-06-14 Outpatient Daniel_T VFP VFP [id number] [address] [place] [address] 11:45:00 11:45:00 [id number] Family Practic e 2021-06-06 2021-06-06 Outpatient Daniel_T VFP VFP [id number] [address] [place] [address] 01:02:00 01:02:00 [id number] Family Practic e 2021-06-06 2021-06-06 [facility] [place] - [id number] [place] 00:00:00 00:00:00 [facility] NixonRachel - Giuseppe marie MD: [id number] VM_HOU_Sh[facility] [address] [facility], [address], [place] [address] , Ph. 2021-02-24 2021-02-24 Outpatient Daniel_T VFP VFP [id number] [address] [place] [address] 03:43:00 03:43:00 [id number] Family Practic e 2021-02-24 2021-02-24 Outpatient Daniel_T VFP VFP [id number] [address] [place] [address] 03:43:00 03:43:00 [id number] Family Practic e 2021-02-06 2021-02-06 Outpatient Daniel_T VFP VFP [id number] [address] [place] [address] 05:36:00 05:36:00 [id number] Family Practic e 2020-12-02 2020-12-02 Outpatient Daniel_T VFP VFP [id number] [address] [place] [address] 02:56:00 02:56:00 [id number] Family Practic e 2020-12-02 2020-12-02 [facility] [place] - [id number] [place] 00:00:00 00:00:00 [facility] NixonRachel - Giuseppe marie MD: [id number] VM_SARA_[facility], [address], [place] [address] , Ph. 2020-11-28 2020-11-28 Outpatient Daniel_T VFP VFP [id number] [address] [place] [address] 06:50:00 06:50:00 [id number] Family Practic e 2020-11-28 2020-11-28 Outpatient Daniel_T VFP VFP [id number] [address] [place] [address] 06:50:00 06:50:00 [id number] Family Practic e 2020-10-11 2020-10-11 Outpatient Daniel_T VFP VFP [id number] [address] [place] [address] 04:43:00 04:43:00 [id number] Family Practic e 2020-09-19 2020-09-19 Outpatient Daniel_T VFP VFP [id number] [address] [place] [address] 12:25:00 12:25:00 [id number] Family Practic e 2020-06-04 2020-06-04 Outpatient Daniel_T VFP VFP [id number] [address] [place] [address] 05:50:00 05:50:00 [id number] Family Practic e 2020-06-01 2020-06-01 Outpatient Daniel_T VFP VFP [id number] [address] [place] [address] 05:34:00 05:34:00 [id number] Family Practic e 2020-06-01 2020-06-01 [facility] [place] - [id number] [place] 00:00:00 00:00:00 Buckkatey [facility] Family [facility] - Practi c : [id number] VM_HOU_[facility] [place] [facility] [facility], [address], [place] [address] , Ph. 2020-05-27 2020-05-27 Outpatient [facility] [id number] - [facility] 06:40:00 06:40:00 [id number] Family Practic e Results Test Description Test Time Test Comments Results Result Comments Source Hemoglobin A1c measurement device panel 2021-06-06 12:27:32 Test Item Value Reference Range Interpretation Comme nts Hemoglobin A1C Fingerstick: (test code = Hemoglobin A1C Fingerstick :) 6 [facility] PracticeGlucose [Mass/volume] in Capillary [id number] 12:24:20 Test Item Value Reference Range Interpretation Comments Blood Glucose: mg/dl (test code = Blood 55 Glucose: mg/dl) [facility] Practice
--- NOTE | 2022-04-06 12:58 | EDPHYS ---
Physician Documentation [facility] Name: Refugio Hsu Age: 81 yrs Sex: Male : 1940 Arrival Date: 04/06/2022 Time: 11:50 Bed 15 Private MD: Megan Arguello F ED Physician Ari Titus HPI: 04/06 12:50 This 81 yrs old Male presents to ER via Ambulatory with complaints of toe infection. kb 12:50 the patient presents with a swollen area of the right first toe. Description: kb erythematous, swollen, warm. Onset: The symptoms/episode began/occurred 3 day(s) ago. Possible cause(s): unknown. Associated signs and symptoms: Pertinent positives: erythema, swelling, Pertinent negatives: discharge, drainage, foreign body sensation, fever, headache, nausea, shortness of breath, vomiting. Modifying factors: the symptoms are alleviated by nothing, the symptoms are aggravated by nothing. Severity of symptoms: At their worst the symptoms were moderate, in the emergency department the symptoms are unchanged. The patient has not experienced similar symptoms in the past. The patient has not recently seen a physician. Historical: - Allergies: 11:58 No Known Allergies; ko1 - Home Meds: 11:58 Metformin Oral [Active]; ko1 - PMHx: 11:58 Atrial Fib; Diabetes - NIDDM; Hypertension; ko1 - Immunization history:: Adult Immunizations up to date. - Social history:: Smoking status: Patient denies any tobacco usage or history of. ROS: 12:50 Constitutional: Negative for fever, chills, and weight loss. kb 12:50 Skin: Positive for cellulitis, erythema, swelling, of the right first toe. 12:50 All other systems are negative. Exam: 12:50 Constitutional: This is a well developed, well nourished patient who is awake, alert, kb and in no acute distress. Head/Face: Normocephalic, atraumatic. ENT: Moist Mucous membranes Cardiovascular: Regular rate and rhythm with a normal S1 and S2. No gallops, murmurs, or rubs. No pulse deficits. Respiratory: Respirations even and unlabored. No increased work of breathing. Talking in full sentences Abdomen/GI: Soft, non-tender. No distention MS/ Extremity: Pulses equal, no cyanosis. Neurovascular intact. Full, normal range of motion. Neuro: Awake and alert, GCS 15, oriented to person, place, time, and situation. Moves all extremities. Normal gait. Psych: Awake, alert, with orientation to person, place and time. Behavior, mood, and affect are within normal limits. 12:50 Skin: cellulitis, that is mild, on the right first toe. Vital Signs: 11:56 BP 102 / 66; Pulse 84; Resp 18; Temp 97; Pulse Ox 98% ; Weight 99.79 kg (R); Height 5 ko1 ft. 11 in. (180.34 cm) (R); 11:56 Body Mass Index 30.68 (99.79 kg, 180.34 cm) ko1 MDM: 11:51 Patient medically screened. kb 12:49 Data reviewed: vital signs, nurses notes. kb 12:51 Differential diagnosis: abscess, cellulitis. Care significantly affected by the kb following chronic conditions: Diabetes. Counseling: I had a detailed discussion with the patient and/or guardian regarding: the historical points, exam findings, and any diagnostic results supporting the discharge/admit diagnosis, radiology results, the need for outpatient follow up, a family practitioner, to return to the emergency department if symptoms worsen or persist or if there are any questions or concerns that arise at home. ED course: Patient has an appointment with his diabetic specialist in [place] on Saturday. Patient educated on return precautions and importance of taking antibiotics. Patient will return if needed. Verbal understanding received of all instructions. All questions answered.. 04/06 11:58 Order name: Foot Right 3 View XRAY; Complete Time: 12:49 kb Administered Medications: 13:15 Drug: Bactrim (trimethoprim-sulfamethoxazole) (160 mg-800 mg (DS) 1 tablet Route: PO; 3 13:18 Follow up: Response: Medication administered at discharge. eh3 13:15 Drug: KeFLEX (cephalexin) 500 mg Route: PO; eh3 13:18 Follow up: Response: Medication administered at discharge. eh3 Disposition: 18:52 Co-signature as Attending Physician, Ari Titus MD I reviewed the patient's care rn provided by the Advanced Practice Provider and agree with the diagnosis and treatment plan. Disposition Summary: 04/06/22 12:57 Discharge Ordered Location: Home kb Condition: Stable kb Diagnosis - Cellulitis of right lower limb - right great toe kb Followup: kb - With: Emergency Department - When: As needed - Reason: Worsening of condition Followup: kb - With: Private Physician - When: 2 - 3 days - Reason: Recheck today's complaints, Continuance of care, Re-evaluation by your physician Discharge Instructions: - Discharge Summary Sheet kb - Cellulitis, Adult, [id number] kb Forms: - Medication Reconciliation Form kb - Thank You Letter kb - Antibiotic Education kb - Prescription Opioid Use kb Prescriptions: - Cephalexin 500 mg Oral Capsule - take 1 capsule by ORAL route every 8 hours for 10 days; 30 capsule; Refills: 0, kb Product Selection Permitted - Bactrim DS 800-160 mg Oral Tablet - take 1 tablet by ORAL route every 12 hours for 10 days; 20 tablet; Refills: 0, kb Product Selection Permitted Signatures: Dispatcher [employer] EDZari Trejo, FINANCIAL WELLNESS COACH-C FINANCIAL WELLNESS COACH-Ari Jones MD MD rn Hall, Erin RN RN 3 Demetra Chavez RN RN ko1
--- NOTE | 2022-04-06 12:58 | ER ---
Nurse's Notes [facility] Name: Refugio Hsu Age: 81 yrs Sex: Male : 1940 Arrival Date: 04/06/2022 Time: 11:50 Bed 15 Private MD: Megan Arguello F Diagnosis: Cellulitis of right lower limb-right great toe Presentation: 04/06 11:56 Chief complaint: Patient states: I think i have an infection in my right big toe. ko1 Coronavirus screen: At this time, the client does not indicate any symptoms associated with coronavirus-19. Ebola Screen: No symptoms or risks identified at this time. Initial Sepsis Screen: Does the patient meet any 2 criteria? No. Patient's initial sepsis screen is negative. Does the patient have a suspected source of infection? No. Patient's initial sepsis screen is negative. Risk Assessment: Do you want to hurt yourself or someone else? Patient reports no desire to harm self or others. Onset of symptoms was April 06, 2022. 11:56 Method Of Arrival: Ambulatory ko1 11:56 Acuity: SPENCER 4 ko1 Triage Assessment: 11:58 General: Appears in no apparent distress. uncomfortable, Behavior is calm, cooperative, ko1 appropriate for age. Pain: Complains of pain in right first toe. Historical: - Allergies: 11:58 No Known Allergies; ko1 - Home Meds: 11:58 Metformin Oral [Active]; ko1 - PMHx: 11:58 Atrial Fib; Diabetes - NIDDM; Hypertension; ko1 - Immunization history:: Adult Immunizations up to date. - Social history:: Smoking status: Patient denies any tobacco usage or history of. Screenin:00 [facility] ED Fall Risk Assessment (Adult) History of falling in the last 3 months, eh3 including since admission No falls in past 3 months (0 pts) Confusion or Disorientation No (0 pts) Intoxicated or Sedated No (0 pts) Impaired Gait Yes (1 pt) Mobility Assist Device Used No (0 pt) Altered Elimination No (0 pt) Score/Fall Risk Level 0 - 2 = Low Risk. Abuse screen: Denies threats or abuse. Denies injuries from another. Nutritional screening: No deficits noted. Tuberculosis screening: No symptoms or risk factors identified. Assessment: 13:00 General: Appears in no apparent distress. uncomfortable, Behavior is calm, cooperative, eh3 appropriate for age. Pain: Complains of pain in right first toe. Neuro: Level of Consciousness is awake, alert, obeys commands, Oriented to person, place, time, situation. Cardiovascular: Capillary refill < 3 seconds Patient's skin is warm and dry. Respiratory: Airway is patent Respiratory effort is even, unlabored, Respiratory pattern is regular, symmetrical. GI: Abdomen is round non-distended. Derm: Wound noted right first toe. Musculoskeletal: Circulation, motion, and sensation intact. Range of motion: intact in all extremities. Vital Signs: 11:56 BP 102 / 66; Pulse 84; Resp 18; Temp 97; Pulse Ox 98% ; Weight 99.79 kg (R); Height 5 ko1 ft. 11 in. (180.34 cm) (R); 11:56 Body Mass Index 30.68 (99.79 kg, 180.34 cm) ko1 ED Course: 11:50 Patient arrived in ED. as 11:50 Megan Arguello MD is Private Physician. as 11:50 Zari Salinas [facility]-C [facility]. kb 11:50 Ari Titus MD is Attending Physician. kb 11:58 Triage completed. ko1 11:58 Arm band placed on left wrist. Patient placed in waiting room, Patient notified of wait ko1 time. 12:28 Foot Right 3 View XRAY In Process Unspecified. EDMS 12:34 Demetra Chavez, RN is Primary Nurse. ko1 13:00 Patient has correct armband on for positive identification. Bed in low position. Adult eh3 w/ patient. 13:20 No provider procedures requiring assistance completed. Patient did not have IV access eh3 during this emergency room visit. Administered Medications: 13:15 Drug: Bactrim (trimethoprim-sulfamethoxazole) (160 mg-800 mg (DS) 1 tablet Route: PO; eh3 13:18 Follow up: Response: Medication administered at discharge. eh3 13:15 Drug: KeFLEX (cephalexin) 500 mg Route: PO; eh3 13:18 Follow up: Response: Medication administered at discharge. eh3 Medication: 13:20 VIS not applicable for this client. eh3 Outcome: 12:57 Discharge ordered by . kb 13:20 Discharged to home ambulatory, with family. eh3 13:20 Condition: stable 13:20 Discharge instructions given to patient, family, Instructed on discharge instructions, follow up and referral plans. medication usage, Demonstrated understanding of instructions, follow-up care, medications, Prescriptions given X 2. 13:20 Patient left the ED. 3 Signatures: Dispatcher [employer] EDMS Zari Salinas, PASTOR LIZ-Ewa Zavaleta Erin, RN RN 3 Demetra Chavez RN RN ko1
[2022-04-06] MEDS ORDERED: SMZ./TMP. 800/160 MG TABLET ONE (13:15)
[2022-04-06] MEDS ORDERED: CEPHALEXIN 250 MG CAP ONE (13:15)
[2022-04-06 13:24] VITALS: BP 102/66; TEMP 97; O2SAT 98
== END 2022-04-06 13:20 | disposition home or self-care (01) ==
LOC: ER 11:44
DX: L03.031 Cellulitis of right toe (principal); I10 Essential (primary) hypertension; E11.9 Type 2 diabetes mellitus without complications
CPT/HCPCS: 99283

== ENCOUNTER 2022-04-16 11:03 | Emergency (ER) | payer OTHER ==
--- OUTSIDE RECORDS SUMMARY | 2022-04-16 11:07 | XMS REPORT | Continuity of Care Document ---
:[address] [facility] t Address [address] [place] [address] [address] [place] [address] Care Team Providers Name Role Phone Hussain_Anjum Attending Clinician Unavailable Kirk Fernando Attending Clinician Marlene Admitting Clinician Unavailable Payers Payer Name Policy Type Policy Number Effective Date Expiration Date S annalisa [place]IC[place]: [id number] 2007 [employer] 00:00:00 [employer] [id number] [employer]ANCE [employer] (MEDICARE SUPPLEMENT) Problems Condition Condition Condition Status Onset Resolution Last Treating Co mments Source Name Details Category Date Date Treatment Clinician Date Post-acute Post-acute Problem Active [facility] COVID-19 COVID-19 2-07 Family 00:00: Practic 00 e Cellulitis Cellulitis Problem Active [facility] of right of Right 2-07 Family foot Foot 00:00: Practic 00 e Senile Senile Problem Active [facility] purpura Purpura 4-05 Family 00:00: Practic 00 e Insomnia Insomnia Problem Active [place] [facility] 4-05 Family 00:00: Practic 00 e Peripheral Peripheral Problem Active [facility] pulse Pulse 3-31 Family absent Absent 00:00: Practic 00 e Type 2 Type 2 Problem Active [facility] diabetes Diabetes 3-31 Family mellitus Mellitus 00:00: Practi c 00 e Neuropathy Neuropathy Problem Active [facility] 7-17 Family 00:00: Practic 00 e Atrial Atrial Problem Active [facility] fibrillati Fibrillati 5-23 Fa mando on on 00:00: Practic 00 e Obesity Obesity Problem Active [facility] 1-03 Family 00:00: Practic 00 e Essential Essential Problem Active Agustín william hypertensi Hypertensi 1-03 Fa mando on on 00:00: Practic 00 e Hypertensi Hypertensi Problem Active [facility] ve ve 1-03 Family disorder Disorder 00:00: Practi c 00 e Cardiac Cardiac Problem Active [facility] arrhythmia Arrhythmia 1-03 Fa mando 00:00: Practic 00 e 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 1-03 Family rhinitis Rhinitis 00:00: Practi c 00 e Gastroesop Gastroesop Problem Active [facility] hageal hageal 1-03 Family reflux Reflux 00:00: Practic disease Disease 00 e without without esophagiti Esophagiti s s Clinical Clinical Problem Active [place] [facility] finding Finding 1-03 Family 00:00: Practic 00 e Neuropathy Neuropathy Problem Active [facility] due to Due to 1-03 Family type 2 Type 2 00:00: Practic diabetes Diabetes 00 e mellitus Mellitus Finding of Finding of Problem Active [facility] esophagus Esophagus 1-03 Fami ly 00:00: Practic 00 e Cardiac Cardiac Problem Active [facility] finding Finding 1-03 Family 00:00: Practic 00 e Diabetic Diabetic Problem Active [place] [facility] peripheral Peripheral 1-03 Fa mando neuropathy Neuropathy 00:00: Pr actic 00 e Vitamin Vitamin Problem Active [facility] deficiency Deficiency 1-03 Fa mando 00:00: Practic 00 e Hyperlipid Hyperlipid Problem Active [facility] emia emia 1-03 Family 00:00: Practic 00 e Mild Mild Problem Active 2022-02-09 Memor ia anxiety anxiety 00:10:51 l (finding) (finding) Herm wander Active Problem 02/09/2022 [facility] Neuropathi Problem Active 2022-02-09 M emoria c pain Neuropathi 00:10:51 l (finding) c pain [place] (finding) Active Problem 02/09/2022 [facility] Paraparesi Parapares Problem Active 2022-02-09 Memoria s is 00:10:51 l (disorder) (disorder) He rmann Active Problem 02/09/2022 [facility] Peripheral Periphera Problem Active 2022-02-09 Memoria nerve l nerve 00:10:51 l disease disease [place] (disorder) (disorder) Active Problem 02/09/2022 [facility] Foot pain Foot pain Problem Active 2022-02-09 Memoria (finding) (finding) 00:10:51 l Active [place] Problem 02/09/2022 [facility] Allergies, Adverse Reactions, Alerts Allergy Allergy Status Severity Reaction(s) Onset Inactive Treating Comm ents Source Name Type Date Date Clinician Anitai Allergy Active [facility] n to Family substanc Practic e e Trulicit Allergy Active Diarrhea [place] [facility] y to Family substanc Practic e e Social History Social Habit Start Date Stop Date Quantity Comments Source Social History 2022-02-02 2022-02-02 [facility] 21:09:02 21:09:02 Social History 2021-10-13 2021-10-13 [facility] 19:14:21 19:14:21 Smoking Status Start Date Stop Date Source Tobacco smoking status [facility] Medications Ordered Filled Start Stop Current Ordering Indication Dosage Frequency Signature Comments Components Source Medication Medication Date Date Medication? Clinician (SIG) Name Name Klaudia Carmona No 30 mg = 1 M emoria mg oral 9-06 cap, PO, l delayed 14:53: Daily, # Horace n release 00 90 cap, 1 capsule Refill(s), Pharmacy: [facility] #[id number], 172.72, cm, 10/13/21 14:08:00 CDT, Height, 101.42, kg, 10/13/21 14:08:00 CDT, Weight Klaudia Carmona No 30 mg = 1 M emoria mg oral 9-06 cap, PO, l delayed 14:53: Daily, # Horace n release 00 90 cap, 1 capsule Refill(s), Pharmacy: [facility] #[id number], 172.72, cm, 10/13/21 14:08:00 CDT, Height, 101.42, kg, 10/13/21 14:08:00 CDT, Weight Klaudia 30 Yes 30 mg = 1 M emoria mg oral 8-12 cap, PO, l delayed 20:05: Daily, # Horace n release 00 30 cap, 3 capsule Refill(s), Pharmacy: [facility] #[id number], 172.72, cm, 10/13/21 14:08:00 CDT, Height, 101.42, kg, 10/13/21 14:08:00 CDT, Weight Cymbalta 30 Yes 30 mg = 1 M emoria mg oral 8-12 cap, PO, l delayed 20:05: Daily, # Horace n release 00 30 cap, 3 capsule Refill(s), Pharmacy: [facility] #[id number], 172.72, cm, 10/13/21 14:08:00 CDT, Height, 101.42, kg, 10/13/21 14:08:00 CDT, Weight Xarelto 20 Yes TAKE 1 Memor ia [...] a GEN PEN NDL 8-12 DIRECTED l [id number] 19:31: [place] 00 gabapentin Yes TAKE 2 Memor ia 400 mg oral 8-12 CAPSULES l capsule 19:31: BY MOUTH Horace n 00 EVERY DAY AT BEDTIME. furosemide Yes TAKE 1 Memor ia 40 mg oral 8-12 TABLET BY l tablet 19:31: MOUTH [place] 00 EVERY DAY Nebivolol 5 Yes TAKE 1 Danny rashmi mg oral 8-12 TABLET BY l tablet 19:31: MOUTH [place] 00 EVERY DAY Xarelto 20 Yes TAKE 1 Memor ia mg oral 8-12 TABLET BY l tablet 19:31: MOUTH [place] 00 EVERY DAY EVENING MEAL Tresiba Yes INJECT 50 Memor ia FlexTouch 8-12 UNITS l 100 19:31: SUBCUTANEO [place] units/mL 00 USLY AT subcutaneou BREAKFAST s solution AND INCREASE DIRECTED (MAX 70 UNITS DAILY) BD YELENA 2 Yes USE Memori a GEN PEN NDL 8-12 DIRECTED l [id number] 19:31: [place] 00 gabapentin Yes TAKE 2 Memor ia 400 mg oral 8-12 CAPSULES l capsule 19:31: BY MOUTH Horace n 00 EVERY DAY AT BEDTIME. furosemide Yes TAKE 1 Memor ia 40 mg oral 8-12 TABLET BY l tablet 19:31: MOUTH [place] 00 EVERY DAY Nebivolol 5 Yes TAKE 1 Danny rashmi mg oral 8-12 TABLET BY l tablet 19:31: MOUTH [place] 00 EVERY DAY Vitamin D3 Yes 125 Memoria 5000 intl 8-12 microgram l units oral 19:30: = 1 tab, Her whitt tablet 00 PO, Daily, 0 Refill(s) Centrum 0 Yes 1 tab, PO, Danny rashmi Silver 8-12 Daily, 0 l Men's 19:30: Refill(s) [place] Vitamin D3 Yes 125 Memoria 5000 intl 8-12 microgram l units oral 19:30: = 1 tab, Her whitt tablet 00 PO, Daily, 0 Refill(s) Centrum 0 Yes 1 tab, PO, Danny rashmi Silver 8-12 Daily, 0 l Men's 19:30: Refill(s) [place] Vitamin Yes 1,000 Memoria B-12 1000 8-12 microgram l mcg oral 19:29: = 1 tab, Whitley nn tablet 00 PO, Daily, 0 Refill(s) Vitamin B 0 Yes 1 cap, PO, Me moria Complex 8-12 Daily, 0 l oral 19:29: Refill(s) [place] capsule 00 Vitamin Yes 1,000 Memoria B-12 1000 8-12 microgram l mcg oral 19:29: = 1 tab, Whitley nn tablet 00 PO, Daily, 0 Refill(s) Vitamin B 0 Yes 1 cap, PO, Me moria Complex 8-12 Daily, 0 l oral 19:29: Refill(s) [place] capsule 00 famotidine Yes 20 mg = 1 Me moria 20 mg oral 8-12 tab, PO, l tablet 19:28: Daily, 0 [place] 00 Refill(s) famotidine 0 Yes 20 mg = 1 Me moria 20 mg oral 8-12 tab, PO, l tablet 19:28: Daily, 0 [place] 00 Refill(s) ALPRAZOLam Yes 0.5 mg = 1 M emoria 0.5 mg oral 8-12 tab, PO, l tablet, 19:27: QAM, 0 [place] extended 00 Refill(s) release ALPRAZOLam Yes 0.5 mg = 1 M emoria 0.5 mg oral 8-12 tab, PO, l tablet, 19:27: QAM, 0 [place] extended 00 Refill(s) release Accu-Chek Accu-Chek No Accu-Chek [facility] Fastclix Fastclix Fastclix Fam haja Lancet Drum Lancet Drum Lancet Practic TEST 3 TEST 3 Drum TEST e TIMES A DAY TIMES A DAY 3 TIMES A DIRECTED DIRECTED DAY E11.40 E11.40 DIRECTED E11.40 Accu-Chek Accu-Chek No Accu-Chek [facility] FastClix FastClix FastClix Fam haja Lancing Lancing Lancing Practi c Device Device Device e Accu-Chek Accu-Chek No Accu-Chek [facility] Guide test Guide test Guide test Family strips TEST strips TEST strips Practic 3 TIMES A 3 TIMES A TEST 3 e DAY DAY TIMES A DIRECTED DIRECTED DAY DIRECTED alprazolam alprazolam No 1 Q1D alprazolam [facility] 0.5 mg 0.5 mg 0.5 mg Family tablet Take tablet Take tablet Practic 1 tablet 1 tablet Take 1 e every day every day tablet by oral by oral every day route at route at by oral bedtime for bedtime for route at 30 days. 30 days. bedtime for 30 days. atorvastati atorvastati No 1 Q1D atorvastat [facility] n 40 mg n 40 mg in [...] DIRECTED DIRECTED DIRECTED fluticasone fluticasone No fluticason [facility] propionate propionate e Fam haja 50 50 propionate Practic mcg/actuati mcg/actuati 50 e on nasal on nasal mcg/actuat spray,suspe spray,suspe ion nasal nsion NASAL nsion NASAL spray,susp USE 1 SPRAY USE 1 SPRAY ension INTO EACH INTO EACH NASAL USE NOSTRIL 2 NOSTRIL 2 1 SPRAY TIMES A DAY TIMES A DAY INTO EACH NOSTRIL 2 TIMES A DAY furosemide furosemide No furosemide [facility] 40 mg 40 mg 40 mg Family tablet TAKE tablet TAKE tablet Practic 1 TABLET BY 1 TABLET BY TAKE 1 e MOUTH EVERY MOUTH EVERY TABLET BY DAY DAY MOUTH EVERY DAY gabapentin gabapentin No 2capsul Q1D gabapentin [facility] 400 mg 400 mg e(s) 400 mg [...] MOUTH EVERY DAY omeprazole omeprazole No omeprazole [facility] 20 mg 20 mg 20 mg Family [...] Vitamin D3 Vitamin D3 No Vitamin D3 [facility] Practic e Xarelto 20 Xarelto 20 No Xarelto 20 [facility] mg tablet mg tablet mg tablet Family TAKE 1 TAKE 1 TAKE 1 Practic TABLET BY TABLET BY TABLET BY e MOUTH EVERY MOUTH EVERY MOUTH DAY EVENING DAY EVENING EVERY DAY MEAL MEAL EVENING MEAL Accu-Chek Accu-Chek No Accu-Chek [facility] Fastclix Fastclix Fastclix Fam haja Lancet Drum Lancet Drum Lancet Practic TEST 3 TEST 3 Drum TEST e TIMES A DAY TIMES A DAY 3 TIMES A DIRECTED DIRECTED DAY E11.40 E11 DIRECTED Accu-Chek Accu-Chek No Accu-Chek [facility] FastClix FastClix FastClix Fam haja Lancing Lancing Lancing Practi c Device Device Device e Accu-Chek Accu-Chek No Accu-Chek [facility] Guide test Guide test Guide test Family strips TEST strips TEST strips Practic 3 TIMES A 3 TIMES A TEST 3 e DAY DAY TIMES A DIRECTED DIRECTED DAY DIRECTED alprazolam alprazolam No 1 Q1D alprazolam [facility] 0.5 mg 0.5 mg 0.5 mg Family tablet Take tablet Take tablet Practic 1 tablet 1 tablet Take 1 e every day every day tablet by oral by oral every day route at route at by oral bedtime for bedtime for route at 30 days. 30 days. bedtime for 30 days. BD Yelena 2nd BD Yelena 2nd No BD Yelena [facility] Gen Pen Gen Pen 2nd Gen Family Needle 32 Needle 32 Pen Needle Practic gauge x gauge x 32 gauge x e 532" USE 32" USE 32" USE DIRECTED DIRECTED DIRECTED cephalexin cephalexin No cephalexin [facility] 500 mg 500 mg 500 mg Family capsule capsule capsule Practi c TAKE 1 TAKE 1 TAKE 1 e CAPSULE BY CAPSULE BY CAPSULE BY MOUTH EVERY MOUTH EVERY MOUTH 8 HOURS FOR 8 HOURS FOR EVERY 8 10 DAYS 10 DAYS HOURS FOR 10 DAYS fluticasone fluticasone No fluticason [facility] propionate propionate e [facility] haja 50 50 propionate Practic mcg/actuati mcg/actuati 50 e on nasal on nasal mcg/actuat spray,suspe spray,suspe ion nasal nsion NASAL nsion NASAL spray,susp 1 SPRAY 1 SPRAY ension INTO EACH INTO EACH NASAL 1 NOSTRIL NOSTRIL SPRAY INTO TWICE A DAY TWICE A DAY EACH NOSTRIL TWICE A DAY furosemide furosemide No furosemide [facility] 40 mg 40 mg 40 mg Family tablet TAKE tablet TAKE tablet Practic 1 TABLET BY 1 TABLET BY TAKE 1 e MOUTH EVERY MOUTH EVERY TABLET BY DAY DAY MOUTH EVERY DAY gabapentin gabapentin No 2capsul Q1D gabapentin [facility] 400 mg 400 mg e(s) 400 mg Family capsule capsule capsule Practi c Take 2 Take 2 Take 2 e capsules capsules capsules every day every day every day by oral by oral by oral route at route at route at bedtime for bedtime for bedtime 90 days. 90 days. for 90 days. nebivolol 5 nebivolol 5 No nebivolol [facility] mg tablet mg tablet 5 mg Famil y TAKE 1 TAKE 1 tablet Practic TABLET BY TABLET BY TAKE 1 e MOUTH EVERY MOUTH EVERY TABLET BY DAY DAY MOUTH EVERY DAY omeprazole omeprazole No omeprazole [facility] 20 mg 20 mg 20 mg Family capsule,del capsule,del capsule,de Practic ayed ayed layed e release release release TAKE 1 TAKE 1 TAKE 1 CAPSULE BY CAPSULE BY CAPSULE BY MOUTH EVERY MOUTH EVERY MOUTH DAY DAY EVERY DAY sulfamethox sulfamethox No sulfametho [facility] azole 800 azole 800 xazole 800 Family mg-trimetho mg-trimetho mg-trimeth Practic prim 160 mg prim 160 mg oprim 160 e tablet TAKE tablet TAKE mg tablet 1 TABLET BY 1 TABLET BY TAKE 1 MOUTH EVERY MOUTH EVERY TABLET BY 12 HOURS 12 HOURS MOUTH FOR 10 DAYS FOR 10 DAYS EVERY 12 HOURS FOR 10 DAYS Tresiba Tresiba No Tresiba [facility] FlexTouch [...] Vitamin D3 Vitamin D3 No Vitamin D3 [facility] Family Practic e Xarelto 20 Xarelto 20 No Xarelto 20 [facility] mg tablet mg tablet mg tablet Family TAKE 1 TAKE 1 TAKE 1 Practic TABLET BY TABLET BY TABLET BY e MOUTH EVERY MOUTH EVERY MOUTH DAY EVENING DAY EVENING EVERY DAY MEAL MEAL EVENING MEAL Immunizations Ordered Immunization Filled Immunization Date Status Commen ts Source Name Name Influenza vaccine, Influenza vaccine, 2020-12-29 Completed [facility] quadrivalent, quadrivalent, 00:00:00 Practice adjuvanted - ML adjuvanted - ML COVID-19, mRNA, COVID-19, mRNA, 2020-06-30 Completed [facility] age Family LNP-S, PF, 100 LNP-S, PF, 100 00:00:00 Practi ce mcg/0.5 mL dose mcg/0.5 mL dose (Moderna) - ML (Moderna) - ML COVID-19, mRNA, COVID-19, mRNA, 2020-05-26 Completed Vill age Family LNP-S, PF, 100 LNP-S, PF, 100 00:00:00 Practi ce mcg/0.5 mL dose mcg/0.5 mL dose (Moderna) - ML (Moderna) - ML COVID-19, mRNA, COVID-19, mRNA, 2020-05-02 Completed Vill age Family LNP-S, PF, 100 LNP-S, PF, 100 00:00:00 Practi ce mcg/0.5 mL dose mcg/0.5 mL dose (Moderna) (Moderna) COVID-19, mRNA, COVID-19, mRNA, 2020-05-02 Completed Vill age Family LNP-S, PF, 100 LNP-S, PF, 100 00:00:00 Practi ce mcg/0.5 mL dose mcg/0.5 mL dose (Moderna) (Moderna) influenza, influenza, 2019-12-23 Completed [facility] injectable, injectable, 00:00:00 Practice quadrivalent quadrivalent influenza, influenza, 2019-12-23 Completed [facility] injectable, injectable, 00:00:00 Practice quadrivalent quadrivalent Vital Signs Vital Name Observation Time Observation Value Comments Source BP Diastolic 2022-04-10 00:00:00 87 mm[Hg] [facility] Height 2022-04-10 00:00:00 71 [in_i] [facility] BMI (Body Mass 2022-04-10 00:00:00 30.5 kg/m2 [facility] Index) Practice BP Systolic 2022-04-10 00:00:00 116 mm[Hg] [facility] Body Weight 2022-04-10 00:00:00 219 [lb_av] [facility] BP Diastolic 2021-06-06 00:00:00 83 mm[Hg] [facility] Height 2021-06-06 00:00:00 71 [in_i] [facility] BMI (Body Mass 2021-06-06 00:00:00 31.1 kg/m2 [facility] Index) Practice BP Systolic 2021-06-06 00:00:00 124 mm[Hg] [facility] Body Weight 2021-06-06 00:00:00 223 [lb_av] [facility] BP Diastolic 2020-12-02 00:00:00 82 mm[Hg] [facility] Height 2020-12-02 00:00:00 71 [in_i] [facility] BMI (Body Mass 2020-12-02 00:00:00 31.2 kg/m2 [facility] e Family Index) Practice BP Systolic 2020-12-02 00:00:00 119 mm[Hg] [facility] Body Weight 2020-12-02 00:00:00 224 [lb_av] [facility] Practice BP Diastolic 2020-06-01 00:00:00 86 mm[Hg] [facility] Height 2020-06-01 00:00:00 71 [in_i] [facility] Practice BMI (Body Mass 2020-06-01 00:00:00 30.8 kg/m2 [facility] e Family Index) Practice BP Systolic 2020-06-01 00:00:00 123 mm[Hg] [facility] Practice Body Weight 2020-06-01 00:00:00 221 [lb_av] [facility] Practice Systolic (mm Hg) 2021-11-29 14:32:00 Danny rial [place] Diastolic (mm Hg) 2021-11-29 14:32:00 Mem orial [place] Heart Rate 2021-11-29 14:32:00 [facility] Respitory Rate 2021-11-29 14:32:00 Memori al [place] Height 2021-11-29 14:32:00 175.26 cm [facility] [place] Weight 2021-11-29 14:32:00 [facility] BMI Calculated 2021-11-29 14:32:00 Memori al [place] Systolic (mm Hg) 2021-10-13 19:08:00 Danny rial [place] Diastolic (mm Hg) 2021-10-13 19:08:00 Mem orial [place] Heart Rate 2021-10-13 19:08:00 [facility] Respitory Rate 2021-10-13 19:08:00 Memori al [place] Height 2021-10-13 19:08:00 172.72 cm [facility] Weight 2021-10-13 19:08:00 [facility] BMI Calculated 2021-10-13 19:08:00 Memori al [facility] Procedures Procedure Date / Time Performing Clinician Source Performed Cardiac Catheterization 2016-07-02 00:00:00 Vill age [facility] Carpal Tunnel Surgery 2009-03-04 00:00:00 Vill e [facility] Complete Repair of Rotator 2007-03-04 00:00:[address] [facility] Practice Colonoscopy [facility] Appendectomy [facility] Appendectomy<sup>1</sup> Adelinemoisés dozier [place] Plan of Care Planned Activity Planned Date Details Comments Source Diagnostic Test 2022-04-10 glucose, fingerstick, [facility] william [facility] Pending 00:00:00 blood [code = Practice glucose, fingerstick, blood] Diagnostic Test 2022-04-10 hemoglobin A1C, [facility] amil Pending 00:00:00 fingerstick [code = Practice hemoglobin A1C, fingerstick] Diagnostic Test 2022-04-10 CBC w/ auto diff [facility] Pending 00:00:00 [code = CBC w/ auto Practice diff] Diagnostic Test 2022-04-10 CMP, serum or plasma [facility] Pending 00:00:00 [code = CMP, serum or Practi ce plasma] Diagnostic Test 2022-04-10 TSH, serum or plasma [facility] Pending 00:00:00 [code = TSH, serum or Practi ce plasma] Diagnostic Test 2022-04-10 T4, free, serum [code Agustín william Family Pending 00:00:00 = T4, free, serum] Practice Diagnostic Test 2022-04-10 [facility] Pending 00:00:00 [code = lipid panel, Practic e serum] Diagnostic Test 2022-04-10 microalbumin/creatini Agustín thomas [facility] Pending 00:00:00 ne, mass ratio, urine Practi ce [code = microalbumin/creatini ne, mass ratio, urine] Diagnostic Test 2022-04-10 uric acid, serum or [facility] Pending 00:00:00 plasma [code = uric Practice acid, serum or plasma] Future Appointment 2022-10-09 Pantera Nixon [id number] [facility] 09:45:[address] Practice [address], [place] [address] Future Appointment 2022-10-07 Pantera Nixon [id number] [facility] 00:00:[address] Practice [address], [place] [address] Encounters Start End Encounter Admission Attending Care Care Encounter Source Date/Time Date/Time Type Type Clinicians Facility Department ID 2022-04-10 2022-04-10 [facility] [place] - [id number] [facility] 00:00:00 [facility] Family NixonRachel MD: [id number] [place] - e Shadow VM_HOU_[facility], [place] [address] , Ph. 2022-04-09 2022-04-09 Outpatient Daniel_T VFP VFP [id number] 20 [facility] 00:00:00 00:00:00 [id number] Family Practic e 2022-04-09 2022-04-09 Outpatient Esauel_T VFP VFP [id number] [address] [place] [address] 00:00:00 00:00:00 [id number] Family Practic e 2022-02-06 2022-02-06 Ambulatory MHIE MNA [id number] Memoria 16:15:00 16:15:00 Pre-Reg Neurology 02 l [facility] 2022-02-06 2022-02-06 Ambulatory MHIE MNA [id number] Memoria 16:15:00 16:15:00 Pre-Reg Neurology 02 tasia Trisha Tomlin 2022-02-06 2022-02-06 Outpatient MHIE MHIE [id number] Memoria 10:15:00 10:15:00 02 tasia Tomlin 2022-02-06 2022-02-06 Outpatient SUNDAY Fernando EMILYSCHKRYSTIN [id number] 10:15:00 10:15:00 Kirk 02 Tushar 2021-11-29 2021-11-30 Outpatient nullFlavo MNA [id number] [facility] 13:15:00 04:59:59 r Neurology 01 tasia Tomlin 2021-11-29 2021-11-30 Outpatient nullFlavo MNA [id number] [facility] 13:15:00 04:59:59 r Neurology 01 tasia Tomlin 2021-11-29 2021-11-29 Outpatient SUNDAY Fernando MISCHKRYSTIN [id number] 08:15:00 23:59:59 Kirk Chapo Tushar 2021-11-29 2021-11-29 Outpatient MHIE MHIE [id number] Memoria 08:15:00 08:15:00 01 l Nabor 2021-11-03 2021-11-03 Outpatient Daniel_T VFP VFP [id number] [address] [place] [address] 00:00:00 00:00:00 [id number] Family Practic e 2021-10-24 2021-10-24 Outpatient Daniel_T VFP VFP [id number] [address] [place] [address] 00:00:00 00:00:00 [id number] Family Practic e 2021-10-13 2021-10-14 Outpatient nullFlavo MNA [id number] Memoria 19:00:00 04:59:59 r Neurology 00 l Trisha Tomlin 2021-10-13 2021-10-14 Outpatient nullFlavo MNA [id number] [facility] 19:00:00 04:59:59 r Neurology 00 l Trisha Tomlin 2021-10-13 2021-10-13 [id number] 14:00:00 23:59:59 Kirk 00 Tushar 2021-10-13 2021-10-13 Outpatient MHIE MHIE [id number] Memoria 14:00:00 14:00:00 00 tasia [place] 2021-06-14 2021-06-14 Outpatient Daniel_T VFP VFP [id number] [address] [place] [address] 11:45:00 11:45:00 [id number] Family Practic e 2021-06-06 2021-06-06 Outpatient Daniel_T VFP VFP [id number] [address] [place] [address] 01:02:00 01:02:00 [id number] Family Practic e 2021-06-06 2021-06-06 [facility] [place] - [id number] V illage 00:00:00 00:00:00 [facility] NixonRachel - Giuseppe marie MD: [id number] AKIKO_SARA_Doug e [facility], [address], [place] [address] , Ph. 2021-02-24 2021-02-24 Outpatient Daniel_T VFP VFP [id number] [address] [place] [address] 03:43:00 03:43:00 [id number] Family Practic e 2021-02-24 2021-02-24 Outpatient Daniel_T VFP VFP [id number] [address] [place] [address] 03:43:00 03:43:00 [id number] Family Practic e 2021-02-06 2021-02-06 Outpatient Daniel_T VFP VFP [id number] [address] [place] [address] 05:36:00 05:36:00 [id number] Family Practic e 2020-12-02 2020-12-02 Outpatient Daniel_T VFP VFP [id number] [address] [place] [address] 02:56:00 02:56:00 [id number] Family Practic e 2020-12-02 2020-12-02 [facility] [place] - [id number] V illage 00:00:00 00:00:00 [facility] Family NixonRachel - Giuseppe marie MD: [id number] VM_HOU_Shad e [facility], [address], [place] [address] , Ph. 2020-11-28 2020-11-28 Outpatient Daniel_T VFP VFP [id number] [address] [place] [address] 06:50:00 06:50:00 [id number] Family Practic e 2020-11-28 2020-11-28 Outpatient Daniel_T VFP VFP [id number] [address] [place] [address] 06:50:00 06:50:00 [id number] Family Practic e 2020-10-11 2020-10-11 Outpatient Daniel_T VFP VFP [id number] [address] [place] [address] 04:43:00 04:43:00 [id number] Family Practic e 2020-09-19 2020-09-19 Outpatient Daniel_T VFP VFP [id number] [address] [place] [address] 12:25:00 12:25:00 [id number] Family Practic e 2020-06-04 2020-06-04 Outpatient Daniel_T VFP VFP [id number] [address] [place] [address] 05:50:00 05:50:00 [id number] Family Practic e 2020-06-01 2020-06-01 Outpatient Daniel_T VFP VFP [id number] [address] [place] [address] 05:34:00 05:34:00 [id number] Family Practic e 2020-06-01 2020-06-01 [facility] [place] - [id number] [facility] ill[facility] 00:00:00 00:00:00 [facility] Hussain, Medical - Practi cynthia HOLLOWAY: [id number] [email or web address] e [address], [place] [address] , Ph. 2020-05-27 2020-05-27 Outpatient Esaubobby_T [facility] [id number] 3-20 [facility] 06:40:00 06:40:00 [id number] Family Practic e Results Test Description Test Time Test Comments Results Result Comments Source Hemoglobin A1c measurement device panel 2022-04-10 11:06:00 Test Item Value Reference Range Interpretation Comme nts Hemoglobin A1c/Hemoglobin.total in Blood (test code = 4548-4) 5.8 % 5.7-6.4 [facility] [Mass/volume] in Capillary [id number] 11:00:30 Test Item Value Reference Range Interpretation Comments Blood Glucose: mg/dl (test code = Blood 145 Glucose: mg/dl) [facility] A[facility] measurement device [id number] 12:27:32 Test Item Value Reference Range Interpretation Comments Hemoglobin A1C Fingerstick: (test code 6 = Hemoglobin A1C Fingerstick:) [facility] [Mass/volume] in Capillary [id number] 12:24:20 Test Item Value Reference Range Interpretation Comments Blood Glucose: mg/dl (test code = Blood 55 Glucose: mg/dl) [facility]
[2022-04-16 12:16] LABS: Hematocrit 48.7 % (39.6-49.0); Lymphocytes % 14.6 % (15.3-44.8); MCV 91.5 fL (80-100); MPV 7.3 fL (7.6-11.3); RBC Red Blood Cell Count 5.33 M/uL (4.33-5.43)
[2022-04-16 12:33] LABS: C-Reactive Protein 4.04 mg/L (<3.00); Potassium 4.5 mmol/L (3.5-5.1)
--- NOTE | 2022-04-16 13:02 | EDPHYS ---
Physician Documentation [facility] Name: Refugio Hsu Age: 81 yrs Sex: Male : 1940 Arrival Date: 04/16/2022 Time: 11:05 Bed 19 Private MD: ED Physician Gomez Arreaga HPI: 04/16 11:34 This 81 yrs old Male presents to ER via Ambulatory with complaints of bs3 cellulits-r great toe. 11:34 51-year-old male history of diabetes seen approximately 10 days ago for right first toe bs3 redness prescribed Bactrim and Keflex reports some improvement but not full resolution of symptoms denies fevers or chills or anything else bothering him has not followed up with that or else if his symptoms were initially 10 he notes that they are now a fourth. Historical: - Allergies: 11:33 No Known Allergies; [facility] - PMHx: 11:33 Atrial Fib; Diabetes - NIDDM; Hypertension; [facility] - Immunization history:: Adult Immunizations up to date. - Social history:: Smoking status: Patient denies any tobacco usage or history of. ROS: 11:34 Constitutional: Negative for fever, chills bs3 11:34 All other systems are negative. Exam: 11:34 Constitutional: This is a well developed, well nourished patient who is awake, alert, bs3 and in no acute distress. Head/Face: Normocephalic, atraumatic. Eyes: Pupils equal round and reactive to light, extra-ocular motions intact. Lids and lashes normal. ENT: mmm, no posterior phyarngeal erythema Chest/axilla: Normal chest wall appearance and motion. Nontender with no deformity. No lesions are appreciated. Cardiovascular: Regular rate and rhythm with a normal S1 and S2. symmetric pulses in upper extremities Respiratory: Lungs have equal breath sounds bilaterally, clear to auscultation, no respiratory distress Abdomen/GI: Soft, non-tender, no rebound or guarding MS/ Extremity: right first digit diffuse swelling, erythema, no focal fluctuance Neuro: Awake and alert, GCS 15, oriented to person, place, time, and situation. Cranial nerves II-XII grossly intact. Motor strength 5/5 in all extremities. Sensory grossly intact. Psych: Awake, alert, with orientation to person, place and time. Behavior, mood, and affect are within normal limits. Vital Signs: 11:29 BP 102 / 65; Pulse 70; Resp 18; Temp 97.8; Pulse Ox 99% ; Weight 99.79 kg; Height 5 ft. jh5 11 in. (180.34 cm); Pain 2/10; 12:37 Pulse 74; Pulse Ox 98% ; ap3 11:29 Body Mass Index 30.68 (99.79 kg, 180.34 cm) 5 MDM: 11:12 Patient medically screened. bs3 11:34 Differential diagnosis: cellulitis, vs abscess, pt has improvement, but not full bs3 resolution with initial course of antibiotics, will check labs, xr, and consider extending course. Data reviewed: vital signs, nurses notes. 12:01 ED course: on further clarification, pt notes it started severe on day one after being bs3 in a tight position in his shoes, I suspect it may be a pressure ulcer and offered a couple recs: observation then restart antibiotics vs antibiotics, pt wanted to be more cautious, will restart antibiotics in case this is infection, will dc home, return prec given, podiatry f/u advised. . 13:00 Independent interpretation of the following test(s) in the Emergency Department X-Ray: bs3 My interpretation is no acute osteomyelitis or fx, +soft tissue swelling. ED course: After further discussion patient does want to trial without antibiotics but will prescribe just in case we will refer to podiatry. 04/16 11:19 Order name: CBC with Diff bs3 04/16 11:19 Order name: BMP bs3 04/16 11:19 Order name: CRP bs3 04/16 12:18 Order name: CBC with Automated Diff; Complete Time: 12:51 EDMS 04/16 12:54 Interpretation: Abnormal: creatine slightly elevated, not sig change from 04/12, sodium bs3 slightly lower 131 from 133. 04/16 12:33 Order name: Basic Metabolic Panel; Complete Time: 12:51 EDMS 04/16 12:33 Order name: C-Reactive Protein; Complete Time: 12:51 EDMS 04/16 11:19 Order name: XRAY Foot RIGHT 3 View bs3 04/16 13:07 Order name: RAD EDMS Administered Medications: No medications were administered Disposition Summary: 04/16/22 13:01 Discharge Ordered Location: Home bs3 Problem: new bs3 Symptoms: have improved bs3 Condition: Stable bs3 Diagnosis - Pain in right toe(s) bs3 Followup: bs3 - With: Mendoza Sánchez DPM - When: 1 week - Reason: Recheck today's complaints Discharge Instructions: - Discharge Summary Sheet bs3 - How to Use Cold Therapy bs3 - Foot Pain bs3 Forms: - Medication Reconciliation Form bs3 - Thank You Letter bs3 - Antibiotic Education bs3 - Prescription Opioid Use bs3 Prescriptions: - cephalexin 500 mg Oral capsule - take 1 capsule by ORAL route 4 times per day for 7 days; 28 capsule; Refills: bs3 0, Product Selection Permitted - Bactrim DS 800-160 mg Oral Tablet - take 1 tablet by ORAL route every 12 hours for 7 days; 14 tablet; Refills: 0, bs3 Product Selection Permitted Signatures: Dispatcher [employer] Shawna Lopez RN RN jh5 Gomez Arreaga MD MD bs3 Corrections: (The following items were deleted from the chart) 12:55 12:54 creatine slightly elevated, not sig change from 2, sodium slightly lower 131 bs3 from 133. bs3
--- NOTE | 2022-04-16 13:02 | ER ---
Nurse's Notes [facility] Name: Refugio Hsu Age: 81 yrs Sex: Male : 1940 Arrival Date: 04/16/2022 Time: 11:05 Bed 19 Private MD: Diagnosis: Pain in right toe(s) Presentation: 04/16 11:29 Chief complaint: Patient states: the antibiotics i was given; cephalexin, bactrim and jh5 it helped but not nearly cleared up. Coronavirus screen: Vaccine status: Patient reports receiving the 2nd dose of the covid vaccine. Client denies travel out of the [place] in the last 14 days. Ebola Screen: Patient negative for fever greater than or equal to 101.5 degrees Fahrenheit, and additional compatible Ebola Virus Disease symptoms Patient denies exposure to infectious person. Patient denies travel to an Ebola-affected area in the 21 days before illness onset. Initial Sepsis Screen: Does the patient meet any 2 criteria? No. Patient's initial sepsis screen is negative. Does the patient have a suspected source of infection? No. Patient's initial sepsis screen is negative. Risk Assessment: Do you want to hurt yourself or someone else? Patient reports no desire to harm self or others. Onset of symptoms was April 06, 2022. 11:29 Method Of Arrival: Ambulatory [facility] 11:29 Acuity: SPENCER 3 jh5 Triage Assessment: 11:33 General: Appears uncomfortable, well groomed, well developed, well nourished, Behavior [facility] is calm, cooperative, appropriate for age. Pain: Complains of pain in right foot. Historical: - Allergies: 11:33 No Known Allergies; jh5 - PMHx: 11:33 Atrial Fib; Diabetes - NIDDM; Hypertension; [facility] - Immunization history:: Adult Immunizations up to date. - Social history:: Smoking status: Patient denies any tobacco usage or history of. Screenin:37 [facility] ED Fall Risk Assessment (Adult) History of falling in the last 3 months, ap3 including since admission No falls in past 3 months (0 pts). Abuse screen: Denies threats or abuse. Nutritional screening: No deficits noted. Tuberculosis screening: No symptoms or risk factors identified. Assessment: 12:38 Reassessment: Patient and/or family updated on plan of care and expected duration. Pain ap3 level reassessed. Patient is alert, oriented x 3, equal unlabored respirations, skin warm/dry/pink. Vital Signs: 11:29 BP 102 / 65; Pulse 70; Resp 18; Temp 97.8; Pulse Ox 99% ; Weight 99.79 kg; Height 5 ft. [facility] 11 in. (180.34 cm); Pain 2/10; 12:37 Pulse 74; Pulse Ox 98% ; ap3 11:29 Body Mass Index 30.68 (99.79 kg, 180.34 cm) [facility] ED Course: 11:05 Patient arrived in ED. as 11:12 Gomez Arreaga MD is Attending Physician. bs3 11:33 Triage completed. [facility] 11:33 Arm band placed on right wrist. [facility] 11:55 Yvrose Flores, RN is Primary Nurse. ap3 12:37 Patient has correct armband on for positive identification. Bed in low position. Call ap3 light in reach. Side rails up X 1. Pulse ox on. NIBP on. Door closed. Noise minimized. 13:01 Mendoza Sánchez DPM is Referral Physician. bs3 13:10 No provider procedures requiring assistance completed. Patient did not have IV access ap3 during this emergency room visit. Administered Medications: No medications were administered Medication: 13:10 VIS not applicable for this client. ap3 Outcome: 13:01 Discharge ordered by . bs3 13:10 Discharged to home ambulatory. ap3 13:10 Condition: good 13:10 Discharge instructions given to patient, Instructed on discharge instructions, follow ap3 up and referral plans. medication usage, Demonstrated understanding of instructions, follow-up care, medications, Prescriptions given X 2. 13:10 Patient left the ED. ap3 Signatures: Ewa Bob Amanda, RN RN ap3 Shawna Matos RN RN 5 Gomez Arreaga MD MD bs3 Corrections: (The following items were deleted from the chart) 11:35 11:29 Pulse 70bpm; Resp 18bpm; Pulse Ox 99%; Temp 97.8F; 99.79 kg; Height 5 ft. 11 in.; [facility] BMI: 30.6; Pain 2/10; 5
--- NOTE | 2022-04-16 13:07 | RAD REPORT ---
EXAM DESCRIPTION: RAD - Foot Right 3 View - 04/16/2022 12:30 pm CLINICAL HISTORY: SWELLING COMPARISON: Foot Right 3 View dated 04/06/2022 FINDINGS: Soft tissue swelling affects the great toe. No soft tissue gas is seen. Subtle demineraliz ation is seen of the medial aspect of the distal aspect of the proximal phalanx of the great toe. Thi s could be related to gout or osteomyelitis.
[2022-04-16 13:22] VITALS: BP 102/65; TEMP 97.8
[2022-04-16 13:23] VITALS: O2SAT 98
== END 2022-04-16 13:10 | disposition home or self-care (01) ==
LOC: ER 11:03
DX: M79.674 Pain in right toe(s) (principal); E11.9 Type 2 diabetes mellitus without complications; I10 Essential (primary) hypertension
CPT/HCPCS: 36415; 80048; 85025; 86140; 99283

== ENCOUNTER 2022-08-07 13:15 | Emergency (ER) | payer OTHER ==
--- NOTE | 2022-08-07 13:49 | RAD REPORT ---
EXAM DESCRIPTION: RAD - Hand Left 3 View - 08/07/2022 1:41 pm CLINICAL HISTORY: Pain;Swelling COMPARISON: No comparisons FINDINGS: Mild to moderate soft tissue swelling is seen along the dorsum of the hand. Small radiopaq ue foreign body is seen superficial soft tissues at the level of the third MCP joint. Mild radiocarpa l arthritic changes. No fracture or dislocation.
--- OUTSIDE RECORDS SUMMARY | 2022-08-07 14:03 | XMS REPORT | Continuity of Care Document ---
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) Problems Condition Condition Condition Status Onset Resolution Last Treating Co mments Source Name Details Category Date Date Treatment Clinician Date Post-acute Post-acute Problem Active [facility] COVID-19 COVID-19 2-07 Family 00:00: Practic 00 e Cellulitis Cellulitis Problem Active [facility] of right of Right 2-07 Family foot Foot 00:00: Practic 00 e Senile Senile Problem Active [facility] purpura Purpura 4-05 Family 00:00: Practic 00 e Peripheral Peripheral Problem Active [facility] pulse Pulse 3-31 Family absent Absent 00:00: Practic 00 e Neuropathy Neuropathy Problem Active [facility] 7-17 Family 00:00: Practic 00 e Atrial Atrial Problem Active [facility] fibrillati Fibrillati 5-23 Fa mando on on 00:00: Practic 00 e Obesity Obesity Problem Active [place] 1-03 Family 00:00: Practic 00 e Essential Essential Problem Active Agustín william hypertensi Hypertensi 1-03 Fa mando on on 00:00: Practic 00 e Cardiac Cardiac Problem Active [facility] arrhythmia Arrhythmia 1-03 Fa mando 00:00: Practic [...] Practic 00 e Cardiac Cardiac Problem Active [place] finding Finding 1-03 Family 00:00: Practic 00 e Diabetic Diabetic Problem Active [place] ge peripheral Peripheral 1-03 Fa mando neuropathy Neuropathy 00:00: Pr actic 00 e Vitamin Vitamin Problem Active [facility] deficiency Deficiency 1-03 Fa mando 00:00: Practic 00 e Hyperlipid Hyperlipid Problem Active [facility] emia emia 1-03 Family 00:00: Practic 00 e Foot pain Foot pain Problem Active 2022-06-08 Memoria (finding) (finding) 14:25:41 l Active [place] Problem 06/08/2022 [facility] [place] Hypertensi Hypertens Problem Active 2022-06-08 Memoria ve braydon 14:25:41 l disorder, disorder, Herm wander systemic systemic arterial arterial (disorder) (disorder) Active Problem 06/08/2022 [facility] [place] Mild Mild Problem Active 2022-06-08 Memor ia anxiety anxiety 14:25:41 l (finding) (finding) Herm wander Active Problem 06/08/2022 [facility] [place] Neuropathi Neuropath Problem Active 2022-06-08 Memoria c pain ic pain 14:25:41 l (finding) (finding) Herm wander Active Problem 06/08/2022 [facility] [place] Paraparesi Problem Active 2022-06-08 M emoria s Paraparesi 14:25:41 l (disorder) s Horace n (disorder) Active Problem 06/08/2022 [facility] [place] Peripheral Periphera Problem Active 2022-06-08 Memoria nerve l nerve 14:25:41 l disease disease [place] (disorder) (disorder) Active [facility] [place] Diabetes Diabetes Problem Active 2022-06-08 Memoria mellitus mellitus 14:25:41 l type 2 type 2 [place] (disorder) (disorder) Active Problem 06/08/2022 [facility] [place] Depressive Depressiv Problem Active 2022-06-08 Memoria disorder e disorder 14:25:41 l (disorder) (disorder) He rmann Active Problem 06/08/2022 [facility] [place] Insomnia Insomnia Problem Active 2022-06-08 Memoria (disorder) (disorder) 14:25:41 l Active [place] Problem 06/08/2022 [facility] [place] Allergies, Adverse Reactions, Alerts Allergy Allergy Status Severity Reaction(s) Onset Inactive Treating Comm ents Source Name Type Date Date Clinician Metformi Allergy Active [place] n to Family substanc Practic e e Trulicit Allergy Active Diarrhea [place] ge y to Family substanc Practic e e Social History Social Habit Start Date Stop Date Quantity Comments Source Social History 2022-02-02 2022-02-02 [facility] 21:09:02 21:09:02 Social History 2021-10-13 2021-10-13 [facility] 19:14:21 19:14:21 Smoking Status Start Date Stop Date Source Tobacco smoking status [facility] Medications Ordered Filled Start Stop Current Ordering Indication Dosage Frequency Signature Comments Components Source Medication Medication Date Date Medication? Clinician (SIG) Name Name Iqrata 30 Yes 30 mg = 1 M emoria mg oral 4-04 cap, PO, l delayed 19:49: Daily, # Horace n release 00 30 cap, 3 capsule Refill(s), Pharmacy: [facility] #[id number], 175.26, cm, 06/05/22 14:18:00 CDT, Height, 98.636, kg, 06/05/22 14:18:00 CDT, Weight Cywesalta 30 No 30 mg = 1 M emoria mg oral 9-06 cap, PO, l delayed 14:53: Daily, # Horace n release 00 90 cap, 1 capsule Refill(s), Pharmacy: [facility] #[id number], 172.72, cm, 10/13/21 14:08:00 CDT, Height, 101.42, kg, 10/13/21 14:08:00 CDT, Weight Cymbalta 30 2021-0 No 30 mg = 1 M emoria mg oral 9-06 cap, PO, l delayed 14:53: Daily, # Horace n release 00 90 cap, 1 capsule Refill(s), Pharmacy: [id number], 172.72, cm, 10/13/21 14:08:00 CDT, Height, 101.42, kg, 10/13/21 14:08:00 CDT, Weight Cymbalta 30 2021-0 No 30 mg = 1 M emoria mg oral 9-06 cap, PO, l delayed 14:53: Daily, # Horace n release 00 90 cap, 1 capsule Refill(s), Pharmacy: [facility] #[id number], 172.72, cm, 10/13/21 14:08:00 CDT, Height, 101.42, kg, 10/13/21 14:08:00 CDT, Weight Cymbalta 30 2021-0 Yes 30 mg = 1 M emoria mg oral 8-12 cap, PO, l delayed 20:05: Daily, # Horace n release 00 30 cap, 3 capsule Refill(s), Pharmacy: [facility] #[id number], 172.72, cm, 10/13/21 14:08:00 CDT, Height, 101.42, kg, 10/13/21 14:08:00 CDT, Weight Cymbalta 30 2021-0 Yes 30 mg = 1 M emoria mg oral 8-12 cap, PO, l delayed 20:05: Daily, # Horace n release 00 30 cap, 3 capsule Refill(s), Pharmacy: [facility] #[id number], 172.72, cm, 10/13/21 14:08:00 CDT, Height, 101.42, kg, 10/13/21 14:08:00 CDT, Weight Cymbalta 30 2-0 Yes 30 mg = 1 M emoria mg oral 8-12 cap, PO, l delayed 20:05: Daily, # Horace n release 00 30 cap, 3 capsule Refill(s), Pharmacy: [facility] #[id number], 172.72, cm, 10/13/21 14:08:00 CDT, Height, 101.42, kg, 10/13/21 14:08:00 CDT, Weight furosemide Yes TAKE 1 Memor ia 40 mg oral 8-12 TABLET BY l tablet 19:31: MOUTH [place] 00 EVERY DAY Nebivolol 5 Yes TAKE 1 Danny rashmi mg oral 8-12 TABLET BY l tablet 19:31: MOUTH [place] 00 EVERY DAY Xarelto 20 Yes TAKE 1 Memor ia mg oral 8-12 TABLET BY l tablet 19:31: MOUTH [place] 00 EVERY DAY EVENING MEAL Tresiba Yes INJECT 50 Memor ia FlexTouch 8-12 UNITS l 100 19:31: SUBCUTANEO [place] units/mL 00 USLY AT subcutaneou BREAKFAST s solution AND INCREASE DIRECTED (MAX 70 UNITS DAILY) BD YELENA 2 Yes USE Memori a GEN PEN NDL 8-12 DIRECTED l [id number] 19:31: [place] 00 gabapentin Yes TAKE 2 Memor ia 400 mg oral 8-12 CAPSULES l capsule 19:31: BY MOUTH Horace n 00 EVERY DAY AT BEDTIME. furosemide Yes TAKE 1 Memor ia 40 mg oral 8-12 TABLET BY l tablet 19:31: MOUTH [place] 00 EVERY DAY Nebivolol 5 Yes TAKE 1 Danny rashmi mg oral 8-12 TABLET BY l tablet 19:31: MOUTH [place] 00 EVERY DAY Xarelto 20 Yes TAKE 1 Memor ia mg oral 8-12 TABLET BY l tablet 19:31: MOUTH [place] 00 EVERY DAY EVENING MEAL Tresiba Yes INJECT 50 Memor ia FlexTouch 8-12 UNITS l 100 19:31: SUBCUTANEO [place] units/mL 00 USLY AT subcutaneou BREAKFAST s solution AND INCREASE DIRECTED (MAX 70 UNITS DAILY) BD YELENA 2 Yes USE Memori a GEN PEN NDL 8-12 DIRECTED l [id number] 19:31: [place] 00 gabapentin Yes TAKE 2 Memor ia [...] a GEN PEN NDL 8-12 DIRECTED l [id number] 19:31: [place] 00 gabapentin Yes TAKE 2 Memor ia 400 mg oral 8-12 CAPSULES l capsule 19:31: BY MOUTH Horace n 00 EVERY DAY AT BEDTIME. Vitamin D3 Yes 125 Memoria 5000 intl 8-12 microgram l units oral 19:30: = 1 tab, Her whitt tablet 00 PO, Daily, 0 Refill(s) Centrum Yes 1 tab, PO, Danny rashmi Silver 8-12 Daily, 0 l Men's 19:30: Refill(s) Vitamin D3 Yes 125 Memoria 5000 intl 8-12 microgram l units oral 19:30: = 1 tab, Her whitt tablet 00 PO, Daily, 0 Refill(s) Centrum Yes 1 tab, PO, Danny rashmi Silver 8-12 Daily, 0 l Men's 19:30: Refill(s) Vitamin D3 Yes 125 Memoria 5000 intl [...] 00 PO, Daily, 0 Refill(s) Vitamin B 2022-0 Yes 1 cap, PO, Me moria Complex 8-12 Daily, 0 l oral 19:29: Refill(s) [place] capsule 00 Vitamin 2021-0 Yes 1,000 Memoria B-12 1000 8-12 microgram l mcg oral 19:29: = 1 tab, Whitley nn tablet 00 PO, Daily, 0 Refill(s) Vitamin B 2021-0 Yes 1 cap, PO, Me moria Complex 8-12 Daily, 0 l oral 19:29: Refill(s) [place] capsule 00 Vitamin 2021-0 Yes 1,000 Memoria B-12 1000 8-12 microgram l mcg oral 19:29: = 1 tab, Whitley nn tablet 00 PO, Daily, 0 Refill(s) Vitamin B 2021-0 Yes 1 cap, PO, Me moria Complex 8-12 Daily, 0 l oral 19:29: Refill(s) [place] capsule 00 famotidine 2021-0 Yes 20 mg = 1 Me moria 20 mg oral 8-12 tab, PO, l tablet 19:28: Daily, 0 [place] 00 Refill(s) famotidine 2021-0 Yes 20 mg = 1 Me moria 20 mg oral 8-12 tab, PO, l tablet 19:28: Daily, 0 [place] 00 Refill(s) famotidine 2021-0 Yes 20 mg = 1 Me moria 20 mg oral 8-12 tab, PO, l tablet 19:28: Daily, 0 [place] 00 Refill(s) ALPRAZOLam 2021-0 Yes 0.5 mg = 1 M emoria 0.5 mg oral 8-12 tab, PO, l tablet, 19:27: QAM, 0 [place] extended 00 Refill(s) release ALPRAZOLam 2021-0 Yes 0.5 mg = 1 M emoria 0.5 mg oral 8-12 tab, PO, l tablet, 19:27: QAM, 0 [place] extended 00 Refill(s) release ALPRAZOLam 2021-0 Yes 0.5 mg = 1 M emoria 0.5 mg oral 8-12 tab, PO, l tablet, 19:27: QAM, 0 [place] extended 00 Refill(s) release Accu-Chek Accu-Chek No Accu-Chek [place] Fastclix Fastclix Fastclix Fam haja Lancet Drum Lancet Drum Lancet Practic TEST 3 TEST 3 Drum TEST e TIMES A DAY TIMES A DAY 3 TIMES A DIRECTED DIRECTED DAY E11.40 E11.40 DIRECTED E11.40 Accu-Chek Accu-Chek No AccRodney [facility] FastClix FastClix FastClix Fam haja Lancing Lancing Lancing Practi c Device Device Device e Accu-Chek Accu-Chek No AccuPremaChek [facility] Guide test Guide test Guide test Family strips TEST strips TEST strips Practic 3 TIMES A 3 TIMES A TEST 3 e DAY DAY TIMES A DIRECTED DIRECTED DAY DIRECTED alprazolam alprazolam No 1 Q1D alprazolam [facility] 0.5 mg 0.5 mg 0.5 mg Family tablet Take tablet Take tablet Practic 1 tablet 1 tablet Take 1 e every day every day tablet by oral by oral every day route at route at by oral bedtime for bedtime for route at 30 days. 30 days. bedtime for 30 days. atorvastati atorvastati No 1 Q1D atorvastat [facility] n 40 mg n 40 mg in [...] x gauge x 32 gauge x e 5/32" USE 32" USE 32" USE DIRECTED DIRECTED DIRECTED fluticasone fl[facility] propionate propionate e Fam haja 50 50 propionate Practic mcg/actuati mcg/actuati 50 e on nasal on nasal mcg/actuat spray,suspe spray,suspe ion nasal nsion NASAL nsion NASAL spray,susp USE 1 SPRAY USE 1 SPRAY ension INTO EACH INTO EACH NASAL USE NOSTRIL 2 NOSTRIL 2 1 SPRAY TIMES A DAY TIMES A DAY INTO EACH NOSTRIL 2 TIMES A DAY furosemide furosemide No furosemide [facility] 40 mg 40 mg 40 mg Family tablet TAKE tablet TAKE tablet Practic 1 TABLET BY 1 TABLET BY TAKE 1 e MOUTH EVERY MOUTH EVERY TABLET BY DAY DAY MOUTH EVERY DAY gabapentin gabapentin No 2capsul Q1D gabapentin [facility] 400 mg 400 mg e(s) 400 mg [...] MOUTH EVERY DAY omeprazole omeprazole No omeprazole [place] 20 mg 20 mg 20 mg Family [...] Vitamin D3 Vitamin D3 No Vitamin D3 [facility] Family Practic e Xarelto 20 Xarelto 20 No Xarelto 20 [place] mg tablet mg tablet mg tablet Family TAKE 1 TAKE 1 TAKE 1 Practic TABLET BY TABLET BY TABLET BY e MOUTH EVERY MOUTH EVERY MOUTH DAY EVENING DAY EVENING EVERY DAY MEAL MEAL EVENING MEAL Accu-Chek Accu-Chek No Accu-Chek [facility] Fastclix Fastclix Fastclix Fam haja Lancet Drum Lancet Drum Lancet Practic TEST 3 TEST 3 Drum TEST e TIMES A DAY TIMES A DAY 3 TIMES A DIRECTED DIRECTED DAY E11.40 E11.40 DIRECTED E11.40 Accu-Chek Accu-Chek No Accu-Chek [facility] FastClix FastClix FastClix Fam haja Lancing Lancing Lancing Practi c Device Device Device e Accu-Chek Accu-Chek No Accu-Chek Shaun Guide test Guide test Guide test Family strips TEST strips TEST strips Practic 3 TIMES A 3 TIMES A TEST 3 e DAY DAY TIMES A DIRECTED DIRECTED DAY DIRECTED alprazolam alprazolam No 1 Q1D alprazolam [facility] 0.5 mg 0.5 mg 0.5 mg Family [...] " USE " USE DIRECTED DIRECTED DIRECTED cephalexin cephalexin No cephalexin [facility] 500 mg 500 mg 500 mg Family capsule capsule capsule Practi c TAKE 1 TAKE 1 TAKE 1 e CAPSULE BY CAPSULE BY CAPSULE BY MOUTH EVERY MOUTH EVERY MOUTH 8 HOURS FOR 8 HOURS FOR EVERY 8 10 DAYS 10 DAYS HOURS FOR 10 DAYS fluticasone fluticasone No fluticason [facility] propionate propionate e Fam haja 50 50 propionate Practic mcg/actuati mcg/actuati 50 e on nasal on nasal mcg/actuat spray,suspe spray,suspe ion nasal nsion NASAL nsion NASAL spray,susp 1 SPRAY 1 SPRAY ension INTO EACH INTO EACH NASAL 1 NOSTRIL NOSTRIL SPRAY INTO TWICE A DAY TWICE A DAY EACH NOSTRIL TWICE A DAY furosemide furosemide No furosemide [facility] 40 mg 40 mg 40 mg Family tablet TAKE tablet TAKE tablet Practic 1 TABLET BY 1 TABLET BY TAKE 1 e MOUTH EVERY MOUTH EVERY TABLET BY DAY DAY MOUTH EVERY DAY gabapentin gabapentin No 2capsul Q1D gabapentin [facility] 400 mg 400 mg e(s) 400 mg [...] MOUTH EVERY DAY omeprazole omeprazole No omeprazole [facility] 20 mg 20 mg 20 mg Family capsule,del capsule,del capsule,de Practic ayed ayed layed e release release release TAKE 1 TAKE 1 TAKE 1 CAPSULE BY CAPSULE BY CAPSULE BY MOUTH EVERY MOUTH EVERY MOUTH DAY DAY EVERY DAY sulfamethox sulfamethox No sulfametho [facility] azole 800 azole 800 xazole 800 Family [...] Vitamin D3 Vitamin D3 No Vitamin D3 [facility] Practic e Xarelto 20 Xarelto 20 No Xarelto 20 [facility] mg tablet mg tablet mg tablet [facility] TAKE 1 TAKE 1 TAKE 1 Practic TABLET BY TABLET BY TABLET BY e MOUTH EVERY MOUTH EVERY MOUTH DAY EVENING DAY EVENING EVERY DAY MEAL MEAL EVENING MEAL Immunizations Ordered Immunization Filled Immunization Date Status Commen Source Name Name Influenza vaccine, Influenza vaccine, 2020-12-29 Completed [facility] quadrivalent, quadrivalent, 00:00:00 Practice adjuvanted - ML adjuvanted - ML COVID-19, mRNA, COVID-19, mRNA, 2020-06-30 Completed [facility] age Family LNP-S, PF, 100 LNP-S, PF, [...] dose (Moderna) (Moderna) influenza, influenza, 2019-12-23 Completed [facility] injectable, injectable, 00:00:00 Practice quadrivalent quadrivalent influenza, influenza, 2019-12-23 Completed [facility] injectable, injectable, 00:00:00 Practice quadrivalent quadrivalent Vital Signs Vital Name Observation Time Observation Value Comments Source BP Diastolic 2022-04-10 00:00:00 87 mm[Hg] [facility] Family Practice Height 2022-04-10 00:00:00 71 [in_i] [facility] BMI (Body Mass 2022-04-10 00:00:00 30.5 kg/m2 [facility]) Practice BP Systolic 2022-04-10 00:00:00 116 mm[Hg] [facility] Body Weight 2022-04-10 00:00:00 219 [lb_av] [facility] Family Practice BP Diastolic 2021-06-06 00:00:00 83 mm[Hg] [facility] Height 2021-06-06 00:00:00 71 [in_i] [facility] BMI (Body Mass 2021-06-06 00:00:00 31.1 kg/m2 [facility] Practice BP Systolic 2021-06-06 00:00:00 124 mm[Hg] [facility] Body Weight 2021-06-06 00:00:00 223 [lb_av] [facility] Practice BP Diastolic 2020-12-02 00:00:00 82 mm[Hg] [facility] Height 2020-12-02 00:00:00 71 [in_i] [facility] BMI (Body Mass 2020-12-02 00:00:00 31.2 kg/m2 [facility]) Practice BP Systolic 2020-12-02 00:00:00 119 mm[Hg] [facility] Body Weight 2020-12-02 00:00:00 224 [lb_av] [facility] Practice BP Diastolic 2020-06-01 00:00:00 86 mm[Hg] [facility] Family Practice Height 2020-06-01 00:00:00 71 [in_i] [facility] Practice BMI (Body Mass 2020-06-01 00:00:00 30.8 kg/m2 [facility] e Family Index) Practice BP Systolic 2020-06-01 00:00:00 123 mm[Hg] [facility] Family Practice Body Weight 2020-06-01 00:00:00 221 [lb_av] [facility] Practice Systolic (mm Hg) 2022-06-05 18:49:00 Danny rial [place] Diastolic (mm Hg) 2022-06-05 18:49:00 Mem orial [place] Heart Rate 2022-06-05 18:49:00 [facility] [place] Height 2022-06-05 18:49:00 5 [ft_i] [facility] [place] Weight 2022-06-05 18:49:00 [facility] [place] BMI Calculated 2022-06-05 18:49:00 Memori al [place] Systolic (mm Hg) 2021-11-29 14:32:00 Danny rial [place] Diastolic (mm Hg) 2021-11-29 14:32:00 Mem orial [place] Heart Rate 2021-11-29 14:32:00 [facility] [place] Respitory Rate 2021-11-29 14:32:00 Memori al [place] Height 2021-11-29 14:32:00 175.26 cm [facility] [place] Weight 2021-11-29 14:32:00 [facility] [place] BMI Calculated 2021-11-29 14:32:00 Memori al [place] Systolic (mm Hg) 2021-10-13 19:08:00 Danny rial [place] Diastolic (mm Hg) 2021-10-13 19:08:00 Mem orial [place] Heart Rate 2021-10-13 19:08:00 [facility] [place] Respitory Rate 2021-10-13 19:08:00 Memori al [place] Height 2021-10-13 19:08:00 172.72 cm [facility] [place] Weight 2021-10-13 19:08:00 [facility] [place] BMI Calculated 2021-10-13 19:08:00 Igor [place] Procedures Procedure Date / Time Performing Clinician Source Performed Cardiac Catheterization 2016-07-02 00:00:00 Vill age [facility] Carpal Tunnel Surgery 2009-03-04 00:00:00 [facility] e [facility] Complete Repair of Rotator 2007-03-04 00:00:00 [facility] Colonoscopy [facility] Appendectomy [facility] Appendectomy<sup>1</sup> Arsen Tomlin Plan of Care Planned Activity Planned Date Details Comments Source Diagnostic Test 2022-04-10 glucose, fingerstick, [facility] william [facility] Pending 00:00:00 blood [code = Practice glucose, fingerstick, blood] Diagnostic Test 2022-04-10 hemoglobin A1C, [facility] Pending 00:00:00 fingerstick [code = Practice hemoglobin A1C, fingerstick] Diagnostic Test 2022-04-10 CBC w/ auto diff [facility] Pending 00:00:00 [code = CBC w/ auto Practice diff] Diagnostic Test 2022-04-10 CMP, serum or plasma [facility] Pending 00:00:00 [code = CMP, serum or Practi ce plasma] Diagnostic Test 2022-04-10 TSH, serum or plasma [facility] Pending 00:00:00 [code = TSH, serum or Practi ce plasma] Diagnostic Test 2022-04-10 T4, free, serum [code Agustín william Family Pending 00:00:00 = T4, free, serum] Practice Diagnostic Test 2022-04-10 [facility] Pending 00:00:00 [code = lipid panel, Practic e serum] Diagnostic Test 2022-04-10 microalbumin/creatini [facility] Pending 00:00:00 ne, mass ratio, urine Practi ce [code = microalbumin/creatini ne, mass ratio, urine] Diagnostic Test 2022-04-10 uric acid, serum or [place] [facility] Pending 00:00:00 plasma [code = uric Practice acid, serum or plasma] Future Appointment 2022-10-09 Pantera Nixon Sofy [facility] 09:45:[address]; Practice [address], [place] [address] Future Appointment 2022-10-07 Pantera Nixon Sofy [facility] 00:00:[address]; Practice [address], [place] [address] Encounters Start End Encounter Admission Attending Care Care Encounter Source Date/Time Date/Time Type Type Clinicians Facility Department ID 2022-09-05 2022-09-05 Outpatient MHIE MHIE [id number] Memoria 13:15:00 13:15:00 04 tasia Nabor 2022-06-05 2022-06-06 Outpatient MHIE MNA [id number] Memoria 19:00:00 04:59:59 Neurology 03 tasia Trisha Tomlin 2022-06-05 2022-06-05 [id number] 14:00:00 23:59:59 Kirk Char Finley 2022-06-05 2022-06-05 Outpatient MHIE MHIE [id number] Memoria 14:00:00 14:00:00 03 tasia [place] 2022-04-10 2022-04-10 Pantera VFP [place] - [id number] [place] 00:00:00 00:00:00 [facility] Family NixonRachel - Giuseppe marie MD: [id number] [place] - e Shadow VM_HOU[facility] [address], [address], [place] [address] , Ph. 2022-04-09 2022-04-09 Outpatient Daniel_T VFP VFP [id number] [address] [place] [address] 00:00:00 00:00:00 [id number] Family Practic e 2022-04-09 2022-04-09 Outpatient Daniel_T VFP VFP [id number] [address] [place] [address] 00:00:00 00:00:00 [id number] Family Practic e 2022-04-09 2022-04-09 Outpatient Daniel_T VFP VFP [id number] [address] [place] [address] 00:00:00 00:00:00 [id number] Family Practic e 2022-02-06 2022-02-06 Ambulatory MHIE MNA [id number] Memoria 16:15:00 16:15:00 Pre-Reg Neurology 02 l Trisha Tomlin 2022-02-06 2022-02-06 Ambulatory MHIE MNA [id number] Memoria 16:15:00 16:15:00 Pre-Reg Neurology 02 l Trisha Tomlin 2022-02-06 2022-02-06 Outpatient MHIE PABLOIE [id number] Memoria 10:15:00 10:15:00 02 tasia Tomlin 2022-02-06 2022-02-06 [facility] [id number] 10:15:00 10:15:00 Kirk 02 Tushar 2021-11-29 2021-11-30 Outpatient nullFlavo MNA [id number] Memoria 13:15:00 04:59:59 r Neurology 01 l Trisha Tomlin 2021-11-29 2021-11-30 Outpatient nullFlavo MNA [id number] Memoria 13:15:00 04:59:59 r Neurology 01 l Trisha Tomlin 2021-11-29 2021-11-29 Out[facility] [id number] 08:15:00 23:59:59 Kirk Tushar 2021-11-29 2021-11-29 Outpatient MHIE MARY [id number] Memoria 08:15:00 08:15:00 01 tasia Tomlin 2021-11-03 2021-11-03 Outpatient Daniel_T VFP VFP [id number] 3-20 [place] 00:00:00 00:00:00 [id number] Family Practic e 2021-10-24 2021-10-24 Outpatient Daniel_T VFP VFP [id number] 3-20 [place] 00:00:00 00:00:00 [id number] Family Practic e 2021-10-13 2021-10-14 Outpatient nullFlavo MNA [id number] Memoria 19:00:00 04:59:59 r Neurology 00 l Trisha Tomlin 2021-10-13 2021-10-14 Outpatient nullFlavo MNA [id number] Memoria 19:00:00 04:59:59 r Neurology 00 l Trisha Tomlin 2021-10-13 2021-10-13 Outpatient [facility] [id number] 14:00:00 23:59:59 Kirk 00 Tushar 2021-10-13 2021-10-13 Outpatient MHIE PABLOIE [id number] Memoria 14:00:00 14:00:00 00 l Nabor 2021-06-14 2021-06-14 Outpatient Daniel_T VFP VFP [id number] [address] [place] [address] 11:45:00 11:45:00 [id number] Family Practic e 2021-06-06 2021-06-06 Outpatient Daniel_T VFP VFP [id number] [address] [place] [address] 01:02:00 01:02:00 [id number] Family Practic e 2021-06-06 2021-06-06 [facility] [place] - [id number] V illage 00:00:00 00:00:00 [facility] Family NixonRachel - Pracryan marie MD: [id number] Darrin lim [facility], [facility] [address] [address] , Ph. 2021-02-24 2021-02-24 Outpatient Daniel_T [facility] VFP [id number] [address] [place] [address] 03:43:00 03:43:00 [id number] Family Practic e 2021-02-24 2021-02-24 Outpatient Daniel_T [facility] VFP [id number] [address] [place] [address] 03:43:00 03:43:00 [id number] Family Practic e 2021-02-06 2021-02-06 Outpatient Daniel_T VFP VFP [id number] [address] [place] [address] 05:36:00 05:36:00 [id number] Family Practic e 2020-12-02 2020-12-02 Outpatient Daniel_T V[facility] VFP [id number] [address] [place] [address] 02:56:00 02:56:00 [id number] Family Practic e 2020-12-02 2020-12-02 [facility] [place] - [id number] V ill[place] 00:00:00 00:00:00 [facility] Family NixonRachel MD: [id number] Darrin lim [facility], [facility] [address], [place] [address] , Ph. 2020-11-28 2020-11-28 Outpatient Daniel_T VFP VFP [id number] [address] [place] [address] 06:50:00 06:50:00 [id number] Family Practic e 2020-11-28 2020-11-28 Outpatient Daniel_T VFP VFP [id number] [facility] 06:50:00 06:50:00 [id number] Family Practic e 2020-10-11 2020-10-11 Outpatient Daniel_T VFP VFP [id number] [facility] 04:43:00 04:43:00 [id number] Family Practic e 2020-09-19 2020-09-19 Outpatient Daniel_T VFP VFP [id number] [facility] 12:25:00 12:25:00 [id number] Family Practic e 2020-06-04 2020-06-04 Outpatient Daniel_T VFP VFP [id number] [facility] 05:50:00 05:50:00 [id number] Family Practic e 2020-06-01 2020-06-01 Outpatient Daniel_T VFP VFP [id number] [facility] 05:34:00 05:34:00 [id number] Family Practic e 2020-06-01 2020-06-01 [facility] [place] - [id number] V illage 00:00:00 00:00:00 Chris [facility] - Pracryan marie MD: [id number] VM_HOU_Shad e [facility], [address], [place] [address] , Ph. 2020-05-27 2020-05-27 Outpatient Daniel_T VFP VFP [id number] [facility] 06:40:00 06:40:00 [id number] Family Practic e Results Test Description Test Time Test Comments Results Result Comments Source Hemoglobin A1c measurement device panel 2022-04-10 11:06:00 Test Item Value Reference Range Interpretation Comme nts Hemoglobin A1c/Hemoglobin.total in Blood (test code = 4548-4) 5.8 % 5.7-6.4 [facility] [id number] 11:00:30 Test Item Value Reference Range Interpretation Comments Blood Glucose: mg/dl (test code = Blood 145 Glucose: mg/dl) [facility] [id number] 12:27:32 Test Item Value Reference Range Interpretation Comments Hemoglobin A1C Fingerstick: (test code 6 = Hemoglobin A1C Fingerstick:) [facility] Capillary [id number] 12:24:20 Test Item Value Reference Range Interpretation Comments Blood Glucose: mg/dl (test code = Blood 55 Glucose: mg/dl) [facility]
[2022-08-07] MEDS ORDERED: KETOROLAC 30 MG/ML INJ ONE (14:06)
--- NOTE | 2022-08-07 14:57 | ER ---
Nurse's Notes [facility] Name: Refugio Hsu Age: 82 yrs Sex: Male : 1940 Arrival Date: 08/07/2022 Time: 13:15 Bed Treatment Private MD: Diagnosis: Gout, unspecified Presentation: 08/07 13:54 Chief complaint: Patient states: "I had a knot on my hand and a few days ago it started aa5 getting sore and red". Redness and swelling noted to top of left hand. Coronavirus screen: At this time, the client does not indicate any symptoms associated with coronavirus-19. Ebola Screen: Patient denies travel to an Ebola-affected area in the 21 days before illness onset. Initial Sepsis Screen: Does the patient meet any 2 criteria? No. Patient's initial sepsis screen is negative. Does the patient have a suspected source of infection? No. Patient's initial sepsis screen is negative. Risk Assessment: Do you want to hurt yourself or someone else? Patient reports no desire to harm self or others. Onset of symptoms was August 2022. 13:54 Acuity: SPENCER 4 aa5 13:54 Method Of Arrival: Ambulatory aa5 Historical: - Allergies: 13:56 No Known Allergies; aa5 - PMHx: 13:56 Atrial Fib; Diabetes - NIDDM; Hypertension; aa5 - Immunization history:: Adult Immunizations unknown. - Social history:: Smoking status: Patient denies any tobacco usage or history of. Assessment: 15:13 General: Appears in no apparent distress. mb9 15:13 Pain: Complains of pain in left hand. Neuro: Castillo Agitation-Sedation Scale (RASS): mb9 0 - Alert and Calm Level of Consciousness is awake, alert, obeys commands, Oriented to person, place, time, situation, Appropriate for age. Respiratory: Airway is patent Respiratory effort is even, unlabored, Respiratory pattern is regular, symmetrical. Derm: Skin is pink, warm \\T\\ dry. Derm: Musculoskeletal: Swelling present in left hand. Vital Signs: 13:54 BP 132 / 80; Pulse 62; Resp 16 S; Temp 97.8(TE); Pulse Ox 98% on R/A; Weight 99.34 kg aa5 (R); Height 5 ft. 11 in. (R); 15:14 BP 128 / 76; Pulse 74; Resp 17; Pulse Ox 100% on R/A; mb9 13:54 Body Mass Index 30.54 (99.34 kg, 180.34 cm) aa5 ED Course: 13:17 Patient arrived in ED. rg4 13:18 Ana Brink FNP [facility]. jh7 13:18 Ricco Ferrer MD is Attending Physician. 7 13:43 XRAY Hand LEFT 3 View In Process Unspecified. EDMS 13:54 Arm band placed on. aa5 13:55 Triage completed. aa5 14:55 Placed in gown. Bed in low position. Call light in reach. Side rails up X 1. mb9 15:05 Indira Cruz, RN is Primary Nurse. mb9 Administered Medications: 14:02 Drug: Ketorolac IM 30 mg Route: IM; Site: right deltoid; aa5 15:02 Follow up: Response: No adverse reaction mb9 15:00 Drug: Dexamethasone IM 10 mg Route: IM; Site: right gluteus; mb9 15:08 Follow up: Response: No adverse reaction mb9 Outcome: 14:56 Discharge ordered by . jh7 15:14 Discharged to home ambulatory. mb9 15:14 Condition: stable 15:14 Discharge instructions given to patient, Instructed on discharge instructions, follow up and referral plans. Demonstrated understanding of instructions, follow-up care, medications, Prescriptions given X 1. 15:15 Patient left the ED. mb9 Signatures: Dispatcher [employer] EDIL Desire Cha, RN Kourtney Rich 4 Ana Brink FNP [place] [id number] Indira Cruz RN RN mb9
--- NOTE | 2022-08-07 14:57 | EDPHYS ---
Physician Documentation [facility] Name: Refugio Hsu Age: 82 yrs Sex: Male : 1940 Arrival Date: 08/07/2022 Time: 13:15 Bed Treatment Private MD: ED Physician Ricco Ferrer HPI: 08/07 14:00 This 82 yrs old Male presents to ER via Ambulatory with complaints of Hand Swelling. jh7 14:00 The patient or guardian reports pain, swelling. The complaints affect the MCP of left jh7 ring finger and MCP of left middle finger. Onset: The symptoms/episode began/occurred yesterday. 82-year-old male presents with left hand swelling and erythema starting yesterday. Reports that he was diagnosed with cellulitis of his foot in the ER recently and it actually ended up being gout. Reports that this feels very similar to when he had gout. Denies fever, injury, or any other symptoms.. Historical: - Allergies: 13:56 No Known Allergies; aa5 - PMHx: 13:56 Atrial Fib; Diabetes - NIDDM; Hypertension; aa5 - Immunization history:: Adult Immunizations unknown. - Social history:: Smoking status: Patient denies any tobacco usage or history of. ROS: 14:00 Constitutional: Negative for fever, chills, and weight loss, Eyes: Negative for injury, jh7 pain, redness, and discharge, Neck: Negative for injury, pain, and swelling, Cardiovascular: Negative for chest pain, palpitations, and edema, Respiratory: Negative for shortness of breath, cough, wheezing, and pleuritic chest pain, Back: Negative for injury and pain, MS/Extremity: Negative for injury and deformity, Skin: Negative for injury, rash, and discoloration, Neuro: Negative for headache, weakness, numbness, tingling, and seizure. 14:00 MS/extremity: Positive for pain, of the MCP of left middle finger and MCP of left ring finger. 14:00 Skin: Positive for erythema, swelling, of the MCP of left middle finger and MCP of left ring finger. 14:00 All other systems are negative. Exam: 14:00 Constitutional: This is a well developed, well nourished patient who is awake, alert, jh7 and in no acute distress. Eyes: Pupils equal round and reactive to light, extra-ocular motions intact. Lids and lashes normal. Conjunctiva and sclera are non-icteric and not injected. Cornea within normal limits. Periorbital areas with no swelling, redness, or edema. Neck: Trachea midline, no thyromegaly or masses palpated, and no cervical lymphadenopathy. Supple, full range of motion without nuchal rigidity, or vertebral point tenderness. No Meningismus. Cardiovascular: Regular rate and rhythm with a normal S1 and S2. No gallops, murmurs, or rubs. Normal PMI, no JVD. No pulse deficits. Respiratory: Lungs have equal breath sounds bilaterally, clear to auscultation and percussion. No rales, rhonchi or wheezes noted. No increased work of breathing, no retractions or nasal flaring. Back: No spinal tenderness. No costovertebral tenderness. Full range of motion. Skin: Warm, dry with normal turgor. Normal color with no rashes, no lesions, and no evidence of cellulitis. Neuro: Awake and alert, GCS 15, oriented to person, place, time, and situation. Motor strength 5/5 in all extremities. Sensory grossly intact. Normal gait. 14:00 Musculoskeletal/extremity: ROM: limited active range of motion due to pain, in the MCP of left middle finger and MCP of left ring finger, Circulation is intact in all extremities. Pulses: are normal with no appreciated deficits, Sensation intact. Erythema, swelling, and tenderness noted over the left third and fourth MCP worsening with range of motion. No streaking, induration, or signs and symptoms of infection.. Vital Signs: 13:54 BP 132 / 80; Pulse 62; Resp 16 S; Temp 97.8(TE); Pulse Ox 98% on R/A; Weight 99.34 kg aa5 (R); Height 5 ft. 11 in. (R); 15:14 BP 128 / 76; Pulse 74; Resp 17; Pulse Ox 100% on R/A; mb9 13:54 Body Mass Index 30.54 (99.34 kg, 180.34 cm) aa5 MDM: 13:18 Patient medically screened. [facility] 15:10 Differential diagnosis: contusion, abrasion, tendonitis, Gouty arthritis, cellulitis. [facility] Data reviewed: vital signs, nurses notes, radiologic studies, plain films. I considered the following discharge prescriptions or medication management in the emergency department Medications were administered in the Emergency Department. See MAR. Care significantly affected by the following chronic conditions: Diabetes, Hypertension. Counseling: I had a detailed discussion with the patient and/or guardian regarding: the historical points, exam findings, and any diagnostic results supporting the discharge/admit diagnosis, to return to the emergency department if symptoms worsen or persist or if there are any questions or concerns that arise at home. Response to treatment: the patient's symptoms have markedly improved after treatment. Special discussion: Agreed with the patient that this did not appear to be cellulitis. However, I informed him that gout should not streak up his arm or cause of fever. If he experienced either of these symptoms return to the ER for immediate eval.. 08/07 13:24 Order name: XRAY Hand LEFT 3 View; Complete Time: 14:39 [facility] Administered Medications: 14:02 Drug: Ketorolac IM 30 mg Route: IM; Site: right deltoid; aa5 15:02 Follow up: Response: No adverse reaction mb9 15:00 Drug: Dexamethasone IM 10 mg Route: IM; Site: right gluteus; mb9 15:08 Follow up: Response: No adverse reaction mb9 Disposition Summary: 08/07/22 14:56 Discharge Ordered Location: Home [facility] Problem: new [facility] Symptoms: have improved [facility] Condition: Stable [facility] Diagnosis - Gout, unspecified [facility] Followup: [facility] - With: Private Physician - When: 2 - 3 days - Reason: Recheck today's complaints Discharge Instructions: - Discharge Summary Sheet [facility] - Gout [facility] - Low-Purine Eating Plan [facility] Forms: - Medication Reconciliation Form [facility] - Thank You Letter [facility] Prescriptions: - indomethacin 50 mg Oral capsule - take 1 capsule by ORAL route 3 times per day for 7 days administer with food or jh7 milk; 21 capsule; Refills: 0, Product Selection Permitted Signatures: Dispatcher [employer] Desire Quintero RN RN aa5 Ana Brink FNP [employer] 7 Indira Cruz RN RN mb9
[2022-08-07] MEDS ORDERED: dexAMETHasone 10 MG/ML VIAL ONE (15:13)
[2022-08-07 15:36] VITALS: TEMP 97.8
[2022-08-07 15:38] VITALS: BP 128/76; O2SAT 100
== END 2022-08-07 15:15 | disposition home or self-care (01) ==
LOC: ER 13:15
DX: M10.9 Gout, unspecified (principal); I10 Essential (primary) hypertension; E11.9 Type 2 diabetes mellitus without complications
CPT/HCPCS: 73130; 96372; 99284; J1100

== ENCOUNTER 2022-12-27 07:30 | Day surgery (SDC) | payer OTHER ==
[2022-12-25 10:12] LABS: Absolute Lymphocytes (CBC) 1.4 K/uL (0.7-4.9); Hematocrit 46.4 % (39.6-49.0); MCV 91.8 fL (80-100); MPV 7.7 fL (7.6-11.3); Platelets 208 thou/uL (152-406); RBC Red Blood Cell Count 5.06 M/uL (4.33-5.43)
[2022-12-25 10:16] LABS: Protime INR 1.28
--- NOTE | 2022-12-25 10:26 | RAD REPORT ---
EXAM DESCRIPTION: Arnie Yañez And Serena (2 Views)12/25/2022 10:12 am CLINICAL HISTORY: Preop for cardiac catheterization. Hypertension COMPARISON: 2021 FINDINGS: The lungs appear clear of acute infiltrate. The heart is borderline enlarged IMPRESSION: No acute abnormalities displayed
[2022-12-25 10:38] LABS: Potassium 4.4 mEq/L (3.5-5.1)
[2022-12-27] MEDS ORDERED: NA CHLORIDE 0.9% 500 ML ONE (08:29)
[2022-12-27] MEDS ORDERED: HEPA 1000U/500MLS 2,000 UNIT/1,000 ML BAG IV ONE (09:46)
[2022-12-27] MEDS ORDERED: LIDOCAINE 1% 20 ML MDV ONE (09:46)
[2022-12-27] MEDS ORDERED: HEPARIN 5000 UNIT/ML 1 ML VIAL ONE (09:47)
[2022-12-27] MEDS ORDERED: VERAPAMIL HCL 10 MG/4 ML VIAL IV ONE (09:47)
[2022-12-27] MEDS ORDERED: CLOPIDOGREL 75 MG TABLET ONE (09:47)
[2022-12-27] MEDS ORDERED: FENTANYL CITR 100 MCG/2 ML ONE (09:47)
[2022-12-27] MEDS ORDERED: MIDAZOLAM HCL 2 MG/2 ML INJ ONE (09:47)
[2022-12-27] MEDS ORDERED: TICAGRELOR 90 MG TABLET PO ONE (09:48)
[2022-12-27] MEDS ORDERED: ATROPINE SULF 1 MG/10 ML SYR IV ONE (09:48)
[2022-12-27] MEDS ORDERED: HEPARIN 10,000 UNIT/10 ML VIAL IV ONE (09:48)
[2022-12-27] MEDS ORDERED: ASPIRIN 325 MG TAB ONE (09:48)
[2022-12-27] MEDS ORDERED: HEPA 1000U/500MLS 1,000 UNIT/500 ML BAG IV ONE (11:58)
--- NOTE | 2022-12-27 13:19 | OP ---
Date of Procedure: 12/27/2022 Surgeon: JOVAN MORGAN Procedures Performed: 1.Selective coronary angiogram. 2.Left heart catheterization. 3.IVUS of left main, minimal luminal area of 5.4, which is indicative of severe stenosis. Access: Right radial artery 6-[place] closed with TR band. Complications: None. Bleeding: Less than 20 mL. Description Of Procedure: After risks, benefits, alternatives were explained, patient agreed to proc edure and signed the informal consent. The patient was brought into cardiac catheterization laborato , prepped and draped in the usual sterile fashion. Then, I accessed right radial artery using pedi atric micropuncture kit, placed 6-[place] Slender sheath and took a 6-[place] JL3.5 catheter, engaged t he left main, took standard views and exchanged for 6-[place] JR4 catheter, engaged the RCA, took rip dard views and then exchanged for a 6-[place] EBU3.5 guide, engaged the left main. Gave systemic hepa rin to assure ACT level above 250 throughout the procedure and took Runthrough wire into the left jolanta n and the LAD and performed IVUS and then removed the IVUS catheter and the wire and final angiogram was satisfactory. Then I removed all the catheter and the sheath. TR band was used for closure with good hemostasis. Findings: 1.Large with distal 60% to 70% with minimal luminal area by IVUS of 5.4 sq mm. Then the LAD proxima l segment is normal. Mid segment after the takeoff of the diagonal had 70% stenosis. Diagonal is ve ry large with proximal 30% stenosis. 2.Left circumflex; proximal 60% stenosis and the luminal irregularities. 3.RCA; large and dominant. Ostial 40%, mid 30%, and then the PDA has multiple tandem lesions rangin g between 40% and 50% and it is large vessel. 4.LVEDP borderline at 12 mmHg. Conclusion: 1.Severe distal left main stenosis with minimal luminal area of 5.4 sq mm by IVUS. 2.Severe mid LAD stenosis. 3.Moderate coronary artery disease elsewhere. Recommendation: Evaluate for CABG. If the patient refuses to go for CABG or if he is at high risk, then we will do a high-risk PCI of left main for the LAD and fix the mid LAD stenosis. SR/MODL Voice ID: [id number] Report ID: [id number]
[2022-12-27] MEDS ORDERED: ACETAMINOPHEN 325 MG TABLET ONE (14:01)
[2022-12-27 14:51] VITALS: BP 128/90; O2SAT 98
== END 2022-12-27 16:36 | disposition home or self-care (01) ==
LOC: CCL 07:30
PROVIDERS: ATTEND Internal Medicine
DX: I25.110 Atherosclerotic heart disease of native coronary artery with unstable angina pectoris (principal); I65.29 Occlusion and stenosis of unspecified carotid artery; I70.213 Atherosclerosis of native arteries of extremities with intermittent claudication, bilateral legs; I71.43 Infrarenal abdominal aortic aneurysm, without rupture; I48.0 Paroxysmal atrial fibrillation; I10 Essential (primary) hypertension; E11.9 Type 2 diabetes mellitus without complications; E78.2 Mixed hyperlipidemia; E78.00 Pure hypercholesterolemia, unspecified; I05.9 Rheumatic mitral valve disease, unspecified; Z79.01 Long term (current) use of anticoagulants; Z79.899 Other long term (current) drug therapy; Z88.8 Allergy status to other drugs, medicaments and biological substances
CPT/HCPCS: 85025; 80048; 36415; 83721; 85610; 82947; 85730; 71046; 92978; 93458; 76937; C1893; Q9966; J1644; J2001; J2250; J3010; J7040; J0461

== ENCOUNTER 2024-07-11 11:37 | Emergency (ER) | payer OTHER ==
--- NOTE | 2024-07-11 13:08 | RAD REPORT ---
EXAMINATION: CT HEAD WITHOUT CONTRAST CT CERVICAL SPINE WITHOUT CONTRAST CLINICAL INDICATION: Head and neck injury status post fall. Head and neck pain TECHNIQUE: Axial CT images from the skull base to the vertex without intravenous contrast. Axial CT i mages through the cervical spine were obtained without intravenous contrast. Sagittal and coronal reformatted images were created from the data set. Coronal and sagittal reformatted images were creat ed from the data set. One or more of the following dose reduction techniques were used: Automated exposure control, adjustment of the mA and/or kV according to patient size, and/or iterative reconstr uction. Unless otherwise specified, incidental findings do not require dedicated imaging follow-up. [id number]. Comparison: none FINDINGS: An intracranial bleed is not seen. Ventricles are normal in caliber. No significant hypodensity within the brain No extra-axial fluid collection. No fluid within the sinuses/mastoids No fracture or dislocation is seen involving the cervical spine. Spondylosis cervical spine. Mild anterior subluxation C3 on C4. Mild posterior subluxation C5 on C6 and C6 on C7. IMPRESSION: No acute intracranial abnormality noted A cervical fracture is not seen. If the patient continues to have symptoms to suggest acute IRRIGATOR GRAVITY FLOW/spinal pathology then MRI would be rec ommended
--- NOTE | 2024-07-11 13:11 | RAD REPORT ---
Exam:Elbow Left 3 View HISTORY: Left elbow pain FINDINGS: No fracture or dislocation seen
--- NOTE | 2024-07-11 13:13 | RAD REPORT ---
Exam:Wrist Left 3 View HISTORY: Left wrist pain FINDINGS: No fracture or dislocation seen. Osteoporosis. Chronic erosions involve the second and third proximal phalanges. If the patient continues to have symptoms to suggest an occult fracture then follow-up x-ray in 7 day s would be recommended
--- NOTE | 2024-07-11 13:14 | RAD REPORT ---
Exam:Wrist Right 3 View HISTORY: Right wrist pain FINDINGS: Chip fracture ulnar styloid process of indeterminate age Otherwise, no acute fracture or dislocation seen. Osteoporosis. If the patient continues to have symptoms to suggest an occult fracture then follow-up x-ray in 7 day s would be recommended.
[2024-07-11] MEDS ORDERED: NA CHLORIDE 0.9% 250 ML ONE (13:19)
[2024-07-11 13:46] LABS: Absolute Eosinophils 0.1 K/uL (0-0.5); Absolute Monocytes 0.6 K/uL (0.1-1.3); Basophils % 0.6 % (0-1.3); Eosinophils % 1.5 % (0-4.4); Hematocrit 44.4 % (39.6-49.0); Lymphocytes % 14.6 % (15.3-44.8); MCH 31.4 pg (27.0-35.0); MCHC 33.7 g/dL (32.0-36.0); MCV 93.2 fL (80-100); MPV 7.6 fL (7.6-11.3); Monocytes % 9.5 % (3.3-12.3); Neutrophils % 73.8 % (41.7-73.7); Platelets 213 thou/uL (152-406); RBC Red Blood Cell Count 4.76 M/uL (4.33-5.43); Red Cell Distribution Width 15.3 % (12.1-15.2)
[2024-07-11 13:56] LABS: PT Prothrombin Time 18.5 SECONDS (10-13.0); PTT, Activated Partial Thromb 42.6 SECONDS (27.2-37.4); Protime INR 1.66
[2024-07-11 14:05] LABS: Anion Gap 9.2 mEq/L (5.0-15.0); Potassium 4.2 mEq/L (3.5-5.1)
--- NOTE | 2024-07-11 14:11 | EDPHYS ---
Physician Documentation [facility] Name: Refugio Hsu Age: 83 yrs Sex: Male : 1940 Arrival Date: 07/11/2024 Time: 11:37 Bed 17 Private MD: ED Physician Ari Titus HPI: 07/11 12:42 This 83 yrs old Male presents to ER via EMS with complaints of Fall Injury. rn 12:42 Details of fall: The patient fell from an upright position. rn 12:43 Patient reports 2 recent falls. First fall 10 days ago and struck forehead and has rn black eyes bilaterally. Patient reports fall again today reports bilateral wrist pain and left elbow pain. No back pain/rib pain/abdominal pain. No lower extremity or hip pain. No pelvic pain. Patient reports things lost balance and fell both times. No LOC.. Historical: - Allergies: 11:41 No Known Allergies; mb9 - Home Meds: 11:47 Xarelto 20 mg oral tablet 1 tab every 24 hours [Active]; Lasix 20 mg oral tablet 1 tab mb9 daily [Active]; Pepcid 20 mg Oral tablet [Active]; nebivolol 5 mg oral tablet 1 tab daily [Active]; duloxetine 30 mg oral Capsule, Delayed Release Sprinkle 1 cap daily [Active]; aspirin 81 mg Oral capsule 1 cap daily [Active]; Tresiba FlexTouch U-100 100 unit/mL (3 mL) subcutaneous Insulin Pen [Active]; allopurinol 100 mg Oral tablet [Active]; mirtazapine 15 mg Oral tablet 1 tab daily [Active]; - PMHx: 11:41 Hypertension; Diabetes - NIDDM; Atrial Fib; mb9 - PSHx: 11:41 None; mb9 - Immunization history:: Adult Immunizations up to date. - Infectious Disease History:: Denies. - Social history:: Smoking status: Patient denies any tobacco usage or history of. - Family history:: not pertinent. - Hospitalizations: : No recent hospitalization is reported. ROS: 12:43 Constitutional: Negative for fever, chills, and weight loss, Eyes: Positive for rn ecchymosis around both eyes Neck: Negative for injury, pain, and swelling, Cardiovascular: Negative for chest pain, palpitations, and edema, Respiratory: Negative for shortness of breath, cough, wheezing, and pleuritic chest pain, Abdomen/GI: Negative for abdominal pain, nausea, vomiting, diarrhea, and constipation, Back: Negative for injury and pain, MS/Extremity: Positive for bilateral wrist pain, positive for left elbow pain Skin: Negative for injury, rash, and discoloration, Neuro: Negative for weakness, numbness, tingling, and seizure Exam: 12:43 Constitutional: This is a well developed, well nourished patient who is awake, alert, rn and in no acute distress. Head/Face: Bilateral ecchymosis in periorbital regions Neck: No midline cervical tenderness or swelling Chest/axilla: No rib tenderness or crepitus Cardiovascular: Regular rate and rhythm. No pulse deficits. Respiratory: No increased work of breathing, no retractions or nasal flaring. Abdomen/GI: Soft, non-tender Back: Recent excisional wound on back, sutured and intact. MS/ Extremity: Pulses equal, no cyanosis. Neurovascular intact. Full, normal range of motion. Equal circumference. Mild painful range of motion bilateral wrists. No focal bony tenderness or deformity. Full range of motion bilateral elbows/shoulders/hips/knees. No pain or tenderness or limited range of motion noted of either lower extremity Neuro: Awake and alert, GCS 15, oriented to person, place, time, and situation. Cranial nerves II-XII grossly intact. Motor strength 5/5 in all extremities. Sensory grossly intact. Cerebellar exam normal. 14:06 ECG was reviewed by the Attending Physician. rn Vital Signs: 11:39 BP 126 / 63; Pulse 73; Resp 16; Temp 98; Pulse Ox 95% ; Weight 90.72 kg; Height 5 ft. mb9 11 in. ; 14:23 BP 132 / 74; Pulse 74; Resp 18; Pulse Ox 100% on R/A; mb9 11:39 Body Mass Index 27.89 (90.72 kg, 180.34 cm) mb9 MDM: 11:39 Medical Screening Exam initiated rn 14:09 Differential diagnosis: closed head injury, contusion, fracture, sprain, strain. Data rn reviewed: vital signs, nurses notes, lab test result(s), EKG, radiologic studies, CT scan, plain films, and as a result, I will discharge patient. Counseling: I had a detailed discussion with the patient and/or guardian regarding the historical points, exam findings, and any diagnostic results supporting the discharge/admit diagnosis, lab results, radiology results, the need for outpatient follow up, to return to the emergency department if symptoms worsen or persist or if there are any questions or concerns that arise at home. Response to treatment: the patient's symptoms have markedly improved after treatment, and as a result, I will discharge patient. Special discussion: Based on the patient's history, exam and DX evaluation, there is no indication for emergent intervention or inpatient TX. It is understood by the patient/guardian that if the SXs persist or worsen they need to return immediately for re-evaluation. I discussed with the patient/guardian in detail that at this point there is no indication for admission to the hospital. It is understood, however, that if the symptoms persist or worsen the patient needs to return immediately for re-evaluation. ED course: No acute traumatic findings on imaging. Patient is ambulatory and feels better after IV fluids. Blood work negative for acute findings. EKG shows A-fib, has chronic A-fib, no indications for emergent admission or transfer at this time. I have personally reviewed all of the results, including but not limited to blood tests and imaging deemed necessary to safely discharge this patient at this time. All results given to and printed out for patient. I personally went over all the results with the patient and answered all questions. Patient will follow-up with PCP and or specialist as discussed. Return precautions given and understood.. 07/11 13:08 Order name: CBC with Diff; Complete Time: 14:07/11 13:08 Order name: Protime (+inr); Complete Time: :07/11 13:08 Order name: Ptt, Activated; Complete Time: :07/11 13:08 Order name: Basic Metabolic Panel; Complete Time: 14:07/11 11:39 Order name: CT Head C Spine; Complete Time: :07/11 11:39 Order name: XRAY Wrist LEFT 3 view; Complete Time: :07/11 11:39 Order name: XRAY Wrist RIGHT 3 view; Complete Time: 13:07/11 12:03 Order name: XRAY Elbow LEFT 3 view; Complete Time: :07/11 13:08 Order name: EKG; Complete Time: 13: rn 07/11 13:08 Order name: IV Start; Complete Time: 13:18 rn 07/11 13:08 Order name: EKG - Nurse/Tech; Complete Time: :18 rn EC:06 Rate is 65 beats/min. Rhythm is irregularly irregular. QRS interval is normal. QT rn interval is normal. No Q waves. T waves are Normal. No ST changes noted. Clinical impression: Atrial Fibrillation. Interpreted by me. Reviewed by me. Administered Medications: : Drug: NS 0.9% IV 250 ml IV at calculated rate once; to be given as a bolus over 30 mb9 minutes Route: IV; Rate: calculated rate; Site: right forearm; 14:24 Follow up: Response: No adverse reaction; IV Status: Completed infusion mb9 Disposition Summary: 07/11/24 14:10 Discharge Ordered Notes: Location: Home rn Problem: new rn Symptoms: have improved rn Condition: Stable rn Diagnosis - Fall on same level, unspecified rn - Unspecified injury of head, initial encounter rn - Contusion of left wrist rn - Contusion of right wrist rn - Contusion of left elbow rn Followup: rn - With: Private Physician - When: As needed - Reason: Recheck today's complaints, Re-evaluation by your physician Discharge Instructions: - Discharge Summary Sheet rn - Contusion rn - Head Injury, Adult rn - Fall Prevention in the Home, Adult rn - Elbow Contusion rn Forms: - Medication Reconciliation Form rn - Antibiotic 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 EDMS EDMS 13:08 13:08 PROTIME (+INR)+COAG.LAB.BRZ ordered. EDMS EDMS 13:08 13:08 PTT, ACTIVATED+COAG.LAB.BRZ ordered. EDMS EDMS 13:08 13:08 BASIC METABOLIC PANEL+C.LAB.BRZ ordered. EDMS EDMS
--- NOTE | 2024-07-11 14:11 | ER ---
Nurse's Notes [facility] Name: Refugio Hsu Age: 83 yrs Sex: Male : 1940 Arrival Date: 07/11/2024 Time: 11:37 Bed 17 Private MD: Diagnosis: Fall on same level, unspecified;Unspecified injury of head, initial encounter;Contusion of left wrist;Contusion of right wrist;Contusion of left elbow Presentation: 07/11 11:39 Chief complaint: EMS states: "toned out for falling from standing. No LOC, unknown if mb9 hit head, and pt is on Xarelto. Pt states Bilateral wrists hurt.". Coronavirus screen: Vaccine status: Patient reports receiving the 2nd dose of the covid vaccine. Ebola Screen: No symptoms or risks identified at this time. Initial Sepsis Screen: Does the patient meet any 2 criteria? No. Patient's initial sepsis screen is negative. Does the patient have a suspected source of infection? No. Patient's initial sepsis screen is negative. Risk Assessment: Do you want to hurt yourself or someone else? Patient reports no desire to harm self or others. Onset of symptoms was July 11, 2024. 11:39 Method Of Arrival: EMS: [facility] mb9 11:39 Acuity: SPENCER 3 mb9 Triage Assessment: 11:42 General: Appears in no apparent distress. Behavior is calm, cooperative. Pain: mb9 Complains of pain in bilateral wrists Quality of pain is described as throbbing. EENT: No signs and/or symptoms were reported regarding the EENT system. Neuro: Level of Consciousness is awake, alert, obeys commands, Oriented to person, place, time, situation, Appropriate for age. Neuro:. Neuro: Formula Technician are equal bilaterally Moves all extremities. Gait is unsteady, Speech is normal, Facial symmetry appears normal, Pupils are PERRLA, Intact. Cardiovascular: Patient's skin is warm and dry. Respiratory: Airway is patent Respiratory effort is even, unlabored, Respiratory pattern is regular, symmetrical. GI: No signs and/or symptoms were reported involving the gastrointestinal system. : No signs and/or symptoms were reported regarding the genitourinary system. Derm: Bruising that is dark purple, on right eye, left eye, right hand, right arm and left arm. Musculoskeletal: Range of motion: intact in all extremities. Historical: - Allergies: 11:41 No Known Allergies; mb9 - Home Meds: 11:47 Xarelto 20 mg oral tablet 1 tab every 24 hours [Active]; Lasix 20 mg oral tablet 1 tab mb9 daily [Active]; Pepcid 20 mg Oral tablet [Active]; nebivolol 5 mg oral tablet 1 tab daily [Active]; duloxetine 30 mg oral Capsule, Delayed Release Sprinkle 1 cap daily [Active]; aspirin 81 mg Oral capsule 1 cap daily [Active]; Tresiba FlexTouch U-100 100 unit/mL (3 mL) subcutaneous Insulin Pen [Active]; allopurinol 100 mg Oral tablet [Active]; mirtazapine 15 mg Oral tablet 1 tab daily [Active]; - PMHx: 11:41 Hypertension; Diabetes - NIDDM; Atrial Fib; mb9 - PSHx: 11:41 None; mb9 - Immunization history:: Adult Immunizations up to date. - Infectious Disease History:: Denies. - Social history:: Smoking status: Patient denies any tobacco usage or history of. - Family history:: not pertinent. - Hospitalizations: : No recent hospitalization is reported. Screenin:43 [facility] ED Fall Risk Assessment (Adult) History of falling in the last 3 months, mb9 including since admission Yes- fall prone (multiple falls) (3 pts) Confusion or Disorientation No (0 pts) Intoxicated or Sedated No (0 pts) Impaired Gait Yes (1 pt) Mobility Assist Device Used No (0 pt) Altered Elimination No (0 pt) Score/Fall Risk Level 3 or more points = High Risk Oriented to surroundings, Maintained a safe environment, Educated pt \\T\\ family on fall prevention, incl call for assistance when getting out of bed, Assessed \\T\\ reinforced patient's understanding of fall precautions. Abuse screen: Denies threats or abuse. Nutritional screening: No deficits noted. Tuberculosis screening: No symptoms or risk factors identified. Assessment: 11:43 Reassessment: see triage assessment. mb9 13:30 Reassessment: No changes from previously documented assessment. Patient and/or family mb9 updated on plan of care and expected duration. Pain level reassessed. Patient is alert, oriented x 3, equal unlabored respirations, skin warm/dry/pink. 14:23 Reassessment: No changes from previously documented assessment. Patient and/or family mb9 updated on plan of care and expected duration. Pain level reassessed. Patient is alert, oriented x 3, equal unlabored respirations, skin warm/dry/pink. Vital Signs: 11:39 BP 126 / 63; Pulse 73; Resp 16; Temp 98; Pulse Ox 95% ; Weight 90.72 kg; Height 5 ft. mb9 11 in. ; 14:23 BP 132 / 74; Pulse 74; Resp 18; Pulse Ox 100% on R/A; mb9 11:39 Body Mass Index 27.89 (90.72 kg, 180.34 cm) mb9 ED Course: 11:38 Patient arrived in ED. mb9 11:39 Ari Titus MD is Attending Physician. rn 11:41 Triage completed. mb9 11:42 Arm band placed on. mb9 11:43 Bed in low position. Call light in reach. Side rails up X 1. Adult w/ patient. Provided mb9 Education on: press call light if needing anything. Client placed on continuous cardiac and pulse oximetry monitoring. NIBP monitoring applied. Door closed. Noise minimized. Warm blanket given. Pillow given. 11:44 No provider procedures requiring assistance completed. mb9 11:46 Indira Go, RN is Primary Nurse. mb9 12:12 CT Head C Spine In Process Unspecified. EDMS 12:39 XRAY Wrist LEFT 3 view In Process Unspecified. EDMS 12:39 XRAY Wrist RIGHT 3 view In Process Unspecified. EDMS 12:39 XRAY Elbow LEFT 3 view In Process Unspecified. EDMS 13:27 Initial lab(s) drawn, by me, sent to lab. EKG done, by ED staff, reviewed by Ari Titus MD. Inserted saline lock: 20 gauge in right forearm, using aseptic technique. Blood collected. Flushed with 10 mL NS. 14:23 IV discontinued, intact, bleeding controlled, No redness/swelling at site. Pressure mb9 dressing applied. Administered Medications: 13:27 Drug: NS 0.9% IV 250 ml IV at calculated rate once; to be given as a bolus over 30 mb9 minutes Route: IV; Rate: calculated rate; Site: right forearm; 14:24 Follow up: Response: No adverse reaction; IV Status: Completed infusion mb9 Medication: 11:44 VIS not applicable for this client. mb9 Outcome: 14:10 Discharge ordered by . rn 14:23 Discharged to home via wheelchair, with family, chato 14:23 Condition: stable 14:23 Discharge instructions given to patient, family, Instructed on discharge instructions, follow up and referral plans. Demonstrated understanding of instructions, follow-up care, 14:24 Patient left the ED. mb9 Signatures: Dispatcher [employer] EDAri Guadarrama MD MD rn Wilkerson, Indira Delgado RN RN mb9 Corrections: (The following items were deleted from the chart) 11:50 11:41 Home Meds: Xarelto oral; mb9 mb9 11:50 11:41 Home Meds: Lasix Oral; mb9 mb9
[2024-07-11 14:29] VITALS: TEMP 98
[2024-07-11 14:30] VITALS: BP 132/74; O2SAT 100
--- NOTE | 2024-07-13 12:02 | EKG ---
Test Date: 2024-07-11 Test Time: 13:24:36 Extension Associate: SUNITHA MEASUREMENT RESULTS: Intervals: Rate: 65 WV: QRSD: 94 QT: 404 QTc: 420 [place]: P: WV: QRS: 29 T: 60 INTERPRETIVE STATEMENTS: Atrial fibrillation Low voltage QRS Abnormal ECG Compared to ECG 09/15/2018 12:53:54 Low QRS voltage now present Ventricular premature complex(es) no longer present Electronically Signed On 07-13-24 12:02:13 CDT by Nate Gupta
== END 2024-07-11 14:24 | disposition home or self-care (01) ==
LOC: ER 11:37
DX: S00.83XA Contusion of other part of head, initial encounter (principal); S60.212A Contusion of left wrist, initial encounter; S60.211A Contusion of right wrist, initial encounter; S50.02XA Contusion of left elbow, initial encounter; W18.30XA Fall on same level, unspecified, initial encounter; E11.9 Type 2 diabetes mellitus without complications; I10 Essential (primary) hypertension; I48.91 Unspecified atrial fibrillation; Z79.01 Long term (current) use of anticoagulants; Z79.4 Long term (current) use of insulin
CPT/HCPCS: 96365; 93005; 85025; 80048; 36415; 85610; 85730; 70450; 72125; 73080; 73110 ×2; 99284; J7050